=== PATIENT | male | born 1935 | race Caucasian/White ===

== ENCOUNTER 2017-05-17 22:55 | Inpatient (IN) ==
[2017-05-17 23:20] LABS: Basophils # 0.1 K/mcL (0.0-0.2); Basophils % 0.5 %; Eosinophils # 0.1 K/mcL (0.0-0.6); Eosinophils % 0.4 %; Hematocrit 51.7 % (37.5-50.1); Hemoglobin 17.1 g/dL (12.9-16.9); Immature Granulocytes % 0.6 % (0-4); Lymphocytes # 1.8 K/mcL (0.6-4.6); Lymphocytes % 8.6 %; Mean Corpuscular HGB Conc 33.1 g/dL (31.6-35.5); Mean Corpuscular Hemoglobin 28.2 pg (28.0-33.3); Mean Corpuscular Volume 85.3 fL (83.0-100.0); Mean Platelet Volume 9.3 fL (9.4-12.4); Monocytes # 1.7 K/mcL (0.0-1.3); Monocytes % 8.3 %; Neutrophils # 16.9 K/mcL (1.6-8.9); Platelet Count 731 K/mcL (140-400); Red Blood Count 6.06 M/mcL (4.19-5.50); Red Cell Distribution Width 16.5 % (11.5-14.5); Segmented Neutrophils % 81.6 %
[2017-05-17 23:24] LABS: Bilirubin,Urine Small (Negative); Blood,Urine Negative (Negative); Clarity,Urine Clear (Clear); Color,Urine Dark Yellow (Yellow); Glucose,Urine (UA) Normal (Normal); Ketones,Urine Negative (Negative); Leukocyte Esterase,Urine Small (Negative); Nitrite,Urine Negative (Negative); Protein,Urine Negative (Neg-Trace); Specific Gravity,Urine 1.022 (1.010-1.025); Urobilinogen,Urine Normal (Normal)
[2017-05-17 23:26] LABS: Bacteria,Urine None Seen per hpf (None-Few); Hyaline Casts,Urine Few per lpf (None-Few); Squamous Epithelial Cell,Urine Few per lpf (None-Few)
--- NOTE | 2017-05-17 23:35 | Emergency Department Note ---
Disposition Clinical Impression: Thrombocytosis Stroke Qualifiers: CVA mechanism: unspecified Qualified Code(s): I63.9 - Cerebral infarction, unspecified Altered mental status Qualifiers: Altered mental status type: unspecified Qualified Code(s): R41.82 - Altered mental status, unspecified Leukocytosis Qualifiers: Leukocytosis type: other Qualified Code(s): D72.828 - Other elevated white blood cell count Disposition: Admitted As Inpatient Condition: Fair Referrals: Isa Hernandez DO [Primary Care Provider] - Forms: ED Satisfaction Letter Time of Disposition: 03:50 Altered Mental Status HPI - General Chief Complaint: ED Altered Mental Status Stated Complaint: AMS Time Seen by Provider: 05/17/17 23:01 Nursing Notes Reviewed: Yes Vital Signs Reviewed: Yes - History of Present Illness HPI Narrative: 81-year-old male presents to the emergency department via EMS with concern from the senior care that he was unresponsive today laying in bed. There is concern from the family members as they state that he has had worsening mental status over the last month, but especially over the last week. Family states that patient had a leukocytosis of 19 a week ago at a different facility, and that they were treating it with Rocephin. I stated that the leukocytosis improved. - Related Data Home Medications Medication Instructions Recorded Confirmed Calcium Carbonate [Calcium] 500 mg PO BID 05/18/17 05/18/17 Divalproex Sodium [Depakote 250 mg PO TID 05/18/17 05/18/17 Sprinkle] Haloperidol [Haldol] 2.5 mg PO BID 05/18/17 05/18/17 LORazepam [Ativan] 0.25 mg PO DAILY 05/18/17 05/18/17 LORazepam [Ativan] 1 mg PO HS 05/18/17 05/18/17 Lisinopril [Zestril] 12.5 mg PO DAILY 05/18/17 05/18/17 Melatonin [Melatin] 6 mg PO HS 05/18/17 05/18/17 Mirtazapine [Remeron] 30 mg PO HS 05/18/17 05/18/17 Allergies Allergy/AdvReac Type Severity Reaction Status Date / Time No Known Allergies Allergy Verified 05/18/17 02:42 All systems ED: reviewed and negative except as stated. Review of Systems: As Per HPI Limitations: ROS unobtainable due to patients medical condition Constitutional: Denies: fever Physical Exam General: 81-year-old male lying on the stretcher, quiet. Head: autraumatic, EOMI, no conjuncitval pallor, no scleral icterus, Mouth: oral mucous membranes moist Neck: neck soft, trachea midline Chest:: Equal chest wall rise Lungs: Normal lungs sounds bilaterally, no wheezes, no respiratory distress Heart: normal heart sounds, normal rate and rhythm, Abdomen: soft, non-tender, no rigidity, no guarding, no rebdound tenderness Lower Extremities: 1+ pedal edema, calves non-tender, there is some mild erythema along the anterior aspect of the legs bilaterally. Integumentary: Skin warm, dry, and intact Neuro: GCS 9, neurologic exam limited secondary to patient's poor participation Psych: normal affect, normal mood Course Vital Signs Temperature 97.6 F 05/17/17 23:01 Pulse Rate 74 05/17/17 23:01 Respiratory Rate 16 05/17/17 23:01 Blood Pressure 142/86 05/17/17 23:01 O2 Sat by Pulse Oximetry 92 05/17/17 23:01 Temperature 97.6 F 05/17/17 23:01 Pulse Rate 74 05/17/17 23:01 Respiratory Rate 16 05/17/17 23:01 Blood Pressure 142/86 05/17/17 23:01 O2 Sat by Pulse Oximetry 92 05/17/17 23:10 Oxygen Delivery Oxygen Delivery Nasal Cannula Procedures - Lumbar Puncture Consent Obtained: written consent Time Out Performed: Yes Patient Position: right lateral decubitus Local Anesthetic: lidocaine 1%, with epi Amount of anesthesia used (mL): 5 Spinal Needle Gauge: 20G Interspace Used: L4-L5 Fluid Initially Obtained: clear Complications: none Altered Mental Status - MDM Narrative Medical decision making narrative: 81-year-old male presents to the emergency department with concern for worsening mental status over the last week. CT scan was obtained and revealed a new ischemic left occipital stroke. Patient was given aspirin. CBC reveals a leukocytosis of 20.7 and a thrombocytosis of 731. There has been mention of a oncologic workup, in the emergency department, we wanted to rule out sources of infection. Patient's urinalysis not reveal evidence of a urinary tract infection. Chest x-ray does not reveal any evidence of pneumonia. Lumbar puncture was obtained to rule out meningitis. Glucose is mildly elevated, but all other cell counts were within normal limits otherwise. Family bedside prior to disposition of patient. The senior care was informed that he was admitted. Admission was discussed with the hospitalist who agreed to accept the patient. Patient was provided 1 L of normal saline here in the emergency department. He was in no acute distress and hemodynamically stable at time of admission. Chest X-Ray 05/17/17 23:01 IMPRESSION: Negative portable chest. D/ / Dayne Lerma MD / Dayne Lerma MD Interpreting Provider: Dayne Lerma MD Head CT 05/17/17 23:02 IMPRESSION: Left occipital lobe ischemia versus artifact. There is no acute hemorrhage. D/ / Dayne Lerma MD / Dayne Lerma MD Interpreting Provider: Dayne Lerma MD Vital Signs Temperature 97.6 F 05/17/17 23:01 Pulse Rate 74 05/17/17 23:01 Respiratory Rate 16 05/17/17 23:01 Blood Pressure 142/86 05/17/17 23:01 O2 Sat by Pulse Oximetry 92 05/17/17 23:01 Temperature 97.6 F 05/17/17 23:01 Pulse Rate 84 05/18/17 03:02 Respiratory Rate 18 05/18/17 03:02 Blood Pressure 144/97 05/18/17 03:02 O2 Sat by Pulse Oximetry 97 05/18/17 03:02 Oxygen Delivery Oxygen Delivery Nasal Cannula - Medical Records Medical records reviewed: Yes I reviewed the patient's medical records. - Lab Data Lab results reviewed: Yes I reviewed the patient's lab results. Result diagrams: 05/17/17 23:07 05/17/17 23:49 Lab Results 05/17/17 05/17/17 05/17/17 Range/Units 23:07 23:07 23:15 WBC 20.7 H (4.3-11.1) K/mcL RBC 6.06 H (4.19-5.50) M/mcL Hgb 17.1 H (12.9-16.9) g/dL Hct 51.7 H (37.5-50.1) % MCV 85.3 (83.0-100.0) fL MCH 28.2 (28.0-33.3) pg MCHC 33.1 (31.6-35.5) g/dL RDW 16.5 H (11.5-14.5) % Plt Count 731 H (140-400) K/mcL MPV 9.3 L (9.4-12.4) fL Immature Gran % 0.6 (0-4) % Seg Neutrophils % 81.6 % Lymphocytes % 8.6 % Monocytes % 8.3 % Eosinophils % 0.4 % Basophils % 0.5 % Neutrophils # 16.9 H (1.6-8.9) K/mcL Lymphocytes # 1.8 (0.6-4.6) K/mcL Monocytes # 1.7 H (0.0-1.3) K/mcL Eosinophils # 0.1 (0.0-0.6) K/mcL Basophils # 0.1 (0.0-0.2) K/mcL Sodium (136-145) mEq/L Potassium (3.5-4.5) mEq/L Chloride (98-109) mEq/L Carbon Dioxide (19-29) mEq/L BUN (8-26) mg/dL Creatinine (0.72-1.25) mg/dL Est GFR ( Amer) (> 60) Est GFR (Non-Af Amer) (> 60) BUN/Creatinine Ratio (6-26) Glucose (70-99) mg/dL Calculated Osmolality (280-300) Calcium (8.6-10.8) mg/dL Total Bilirubin (0.2-1.2) mg/dL Direct Bilirubin (0.0-0.5) mg/dL Indirect Bilirubin (0.0-1.2) mg/dL AST (5-34) Units/L ALT (0-55) Units/L Alkaline Phosphatase (38-126) Units/L Troponin I (0-0.03) ng/mL Serum Total Protein (6.0-8.3) g/dL Albumin (3.5-5.0) g/dL Globulin (2.4-3.5) g/dL Albumin/Globulin Ratio (1.1-2.2) TSH (0.350-4.840) mcIU/mL Urine Color Dark Yellow (Yellow) Urine Clarity Clear (Clear) Urine pH 6.0 (5.0-8.0) pH Units Ur Specific [place] 1.022 (1.010-1.025) Urine Protein Negative (Neg-Trace) mg/dL Urine Glucose (UA) Normal (Normal) mg/dL Urine Ketones Negative (Negative) mg/dL Urine Blood Negative (Negative) Urine Nitrite Negative (Negative) Urine Bilirubin Small H (Negative) Urine Urobilinogen Normal (Normal) mg/dL Ur Leukocyte Esterase Small H (Negative) Urine Microscopic RBC 3-5 H (0-3) per hpf Urine Microscopic WBC 5-15 H (0-3) per hpf Ur Squamous Epith Cells Few (None-Few) per lpf Urine Bacteria None Seen (None-Few) per hpf Hyaline Casts Few (None-Few) per lpf Ur Culture Indicated? YES A (NO) CSF Volume mL CSF Appearance (Clear) CSF Color (Colorless) CSF RBC (0.000 - 0.002) M/mcL CSF Tot Nucleated Cells (0-5) TNC/mcL CSF Glucose (40-70) mg/dL CSF Xanth Comm (Not Observe) CSF Total Protein (15-45) mg/dL Specimen Rejected Hemolyzed 05/17/17 05/17/17 05/18/17 Range/Units 23:49 23:49 01:50 WBC (4.3-11.1) K/mcL RBC (4.19-5.50) M/mcL Hgb (12.9-16.9) g/dL Hct (37.5-50.1) % MCV (83.0-100.0) fL MCH (28.0-33.3) pg MCHC (31.6-35.5) g/dL RDW (11.5-14.5) % Plt Count (140-400) K/mcL MPV (9.4-12.4) fL Immature Gran % (0-4) % Seg Neutrophils % % Lymphocytes % % Monocytes % % Eosinophils % % Basophils % % Neutrophils # (1.6-8.9) K/mcL Lymphocytes # (0.6-4.6) K/mcL Monocytes # (0.0-1.3) K/mcL Eosinophils # (0.0-0.6) K/mcL Basophils # (0.0-0.2) K/mcL Sodium 138 (136-145) mEq/L Potassium 4.2 (3.5-4.5) mEq/L Chloride 101 (98-109) mEq/L Carbon Dioxide 29 (19-29) mEq/L BUN 16 (8-26) mg/dL Creatinine 1.08 (0.72-1.25) mg/dL Est GFR ( Amer) > 60 (> 60) Est GFR (Non-Af Amer) > 60 (> 60) BUN/Creatinine Ratio 15 (6-26) Glucose 127 H (70-99) mg/dL Calculated Osmolality 289 (280-300) Calcium 9.0 (8.6-10.8) mg/dL Total Bilirubin 0.7 (0.2-1.2) mg/dL Direct Bilirubin 0.3 (0.0-0.5) mg/dL Indirect Bilirubin 0.4 (0.0-1.2) mg/dL AST 19 (5-34) Units/L ALT 12 (0-55) Units/L Alkaline Phosphatase 85 (38-126) Units/L Troponin I 0.01 (0-0.03) ng/mL Serum Total Protein 7.0 (6.0-8.3) g/dL Albumin 2.7 L (3.5-5.0) g/dL Globulin 4.3 H (2.4-3.5) g/dL Albumin/Globulin Ratio 0.6 L (1.1-2.2) TSH 2.468 (0.350-4.840) mcIU/mL Urine Color (Yellow) Urine Clarity (Clear) Urine pH (5.0-8.0) pH Units Ur Specific [place] (1.010-1.025) Urine Protein (Neg-Trace) mg/dL Urine Glucose (UA) (Normal) mg/dL Urine Ketones (Negative) mg/dL Urine Blood (Negative) Urine Nitrite (Negative) Urine Bilirubin (Negative) Urine Urobilinogen (Normal) mg/dL Ur Leukocyte Esterase (Negative) Urine Microscopic RBC (0-3) per hpf Urine Microscopic WBC (0-3) per hpf Ur Squamous Epith Cells (None-Few) per lpf Urine Bacteria (None-Few) per hpf Hyaline Casts (None-Few) per lpf Ur Culture Indicated? (NO) CSF Volume 3.0 mL CSF Appearance Clear (Clear) CSF Color Colorless (Colorless) CSF RBC < 0.002 (0.000 - 0.002) M/mcL CSF Tot Nucleated Cells < 3 (0-5) TNC/mcL CSF Glucose 74 H (40-70) mg/dL CSF Xanth Comm Not Observed (Not Observe) CSF Total Protein 45 (15-45) mg/dL Specimen Rejected - Radiology Data Radiology results reviewed: Yes I reviewed the patient's radiology results. - EKG Data EKG attestation: Yes I reviewed and interpreted this EKG. EKG results narrative: 2302 Ventricular rate 78 bpm, AR interval 147 ms, QRS duration 90 ms, QT 386 ms, QTC 419 ms, normal axis. Sinus rhythm with a ventricular rate of 78 bpm. There is no evidence of any ischemic ST changes noted on this electrocardiogram in comparison with the previous one performed on June 09, 2005. TPA Checklist - LKW: 3-4.5 hrs Add. Warnings/Precautions Patient/family understanding: The patient/family members have been counseled and understood the risk, benefit , and alternatives of treatment. Attestation Statement - Attestation Attestation: I examined this patient and my medical decision-making was reviewed with the Resident Physician. I agree with the documented findings, disposition and treatment plan as described except to the extent set forth below. Patient to ED with altered mental status. Patient was [facility] from [facility]. Patient is normally awake and talking but has been sleeping and difficult to arouse. He recently had a change in his medications but increase in Ativan and Haldol. Her recent admission. He is to have a leukocytosis that time period and never found a source. He completed a treatment course of Rocephin. On examination he sleeping. Localizes pain. Mumbles incoherently. Moving all extremities. Plan. The patient's workup here again demonstrates a leukocytosis of 20. It is unclear where this white count is coming from. He has not been on steroids. He is not febrile. We did question whether the patient could have a meningitis/encephalitis that was partially treated with Rocephin. We did perform an LP. Cultures pending at this time. We will admit to medicine. 35 minutes of critical care exclusive of separately billable procedures.
[2017-05-18 00:10] LABS: Alanine Aminotransferase 12 Units/L (0-55); Albumin 2.7 g/dL (3.5-5.0); Albumin/Globulin Ratio 0.6 (1.1-2.2); Alkaline Phosphatase 85 Units/L (38-126); Aspartate Amino Transferase 19 Units/L (5-34); BUN/Creatinine Ratio 15 (6-26); Bilirubin,Direct 0.3 mg/dL (0.0-0.5); Bilirubin,Indirect 0.4 mg/dL (0.0-1.2); Bilirubin,Total 0.7 mg/dL (0.2-1.2); Blood Urea Nitrogen 16 mg/dL (8-26); Carbon Dioxide 29 mEq/L (19-29); Chloride 101 mEq/L (98-109); Globulin 4.3 g/dL (2.4-3.5); Glucose 127 mg/dL (70-99); Osmolality,Calculated 289 (280-300); Potassium 4.2 mEq/L (3.5-4.5); Sodium 138 mEq/L (136-145); eGFR For African Americans > 60 (> 60); eGFR For Non-African Americans > 60 (> 60)
[2017-05-18 00:42] LABS: Thyroid Stimulating Hormone 2.468 mcIU/mL (0.350-4.840)
[2017-05-18] MEDS ORDERED: Lidocaine/EPI 1:100k 1% 50 ML VIAL INFILT ONE (01:27)
[2017-05-18 02:18] LABS: Red Blood Cell,CSF < 0.002 M/mcL
[2017-05-18] MEDS ORDERED: Aspirin 81 MG TAB.CHEW PO ONE (02:24)
[2017-05-18 02:25] LABS: Appearance,CSF Clear (Clear)
[2017-05-18 02:35] LABS: Glucose,CSF 74 mg/dL (40-70); Total Protein,CSF 45 mg/dL (15-45)
[2017-05-18] MEDS ORDERED: 0.9 % Sodium Chloride 1,000 ML IVC ONE (03:16)
[2017-05-18] MEDS ORDERED: Acetaminophen 325 MG TABLET PO PRN (03:48)
[2017-05-18] MEDS ORDERED: Naloxone 0.4 MG/ML INJ IVP PRN (03:48)
--- NOTE | 2017-05-18 04:06 | Internal Med History&Physical ---
Date of Encounter: 05/18/17 Time of Encounter: 03:30 Assessment and Plan (1) Stroke Current visit: Yes Status: Acute Patient has altered mental status. LP has been done, no meningitis or infection. CT suspect occipital ischemia. - Highly suspected if patient can tolerate MRI. 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 May repeat CT later to confirm CVA later. - Place patient on continuous cardiac monitoring, check echo and duplex carotid - Place patient on aspirin and atovastatin - PTOT evaluation. - Keep nothing by mouth at this point, swallow evaluation in a.m. Qualifiers: CVA mechanism: unspecified Qualified Code(s): I63.9 - Cerebral infarction, unspecified (2) Dementia Current visit: Yes Status: Acute Continue supportive care Qualifiers: Dementia type: Alzheimer's disease Qualified Code(s): G30.8 - Other Alzheimer's disease; F02.81 - Dementia in other diseases classified elsewhere with behavioral disturbance; F02.81 - Dementia in other diseases classified elsewhere with behavioral disturbance; F02.81 - Dementia in other diseases classified elsewhere with behavioral disturbance (3) Altered mental status Current visit: Yes Status: Acute Possibly multiple factor include possible CVA, UTI, baseline dementia, polypharmacy. - Continue closely monitor patient. Treat underlying disease. Qualifiers: Altered mental status type: delirium Qualified Code(s): R41.0 - Disorientation, unspecified (4) Leukocytosis Current visit: Yes Status: Acute Etiology is undetermined. Neutrophil dominant. No significant infection identified except urinalysis shows UTI. Will give Rocephin for UTI. Follow urine culture. Follow CBC to see the trend of WBC. May consider hematology consult if leukocytosis persists. Qualifiers: Leukocytosis type: other Qualified Code(s): D72.828 - Other elevated white blood cell count (5) DVT prophylaxis Current visit: Yes Status: Acute Heparin subcutaneously (6) UTI (urinary tract infection) Current visit: Yes Status: Acute Urinalysis shows UTI. Will continue place patient on Rocephin IV. Follow urine culture. Qualifiers: Urinary tract infection type: acute cystitis Hematuria presence: without hematuria Qualified Code(s): N30.00 - Acute cystitis without hematuria Internal Medicine - H&P: HPI Chief complaint: Altered mental status Admitted From: Long-term Nursing Facility Plans for Post Hospital Care: Transfer [facility] Facility History of present illness: Mr. Bridges is a 81 year old male with history of dementia, hypertension present to ER for altered mental status. Patient is demented and cannot communicate. Family is not at bedside. History obtained from long-term and ER record. Patient was found altered mental status and difficult due to arouse today. Patient was found chronic leukocytosis but reason is undetermined. Patient accepted Rocephin treatment but do not know how long. Patient was suspected meningitis in ER and had a lumbar puncture, results not support meningitis or intracranial infection. CT head suspected occipital ischemia. Patient was admitted for altered mental status. Actually, patient's mental status has improved in the emergency room. When I saw him, he is awake alert, totally disorientated but opened eyes if his name was called. Cannot discuss CODE STATUS with patient. According to long-term record, patient is DNR [facility]. Past Med Surg Social Fam HX - Past Medical History Medical history: non-contributory - Social History Smoking Status: Unknown if ever smoked Alcohol use: none Drug use: none - Family History Mother History Unknown: Yes Internal Medicine - H&P: Meds Calcium Carbonate [Calcium] 500 mg PO BID 05/18/17 [History] Divalproex Sodium [Depakote Sprinkle] 250 mg PO TID 05/18/17 [History] Haloperidol [Haldol] 2.5 mg PO BID 05/18/17 [History] LORazepam [Ativan] 0.25 mg PO DAILY 05/18/17 [History] LORazepam [Ativan] 1 mg PO HS 05/18/17 [History] Lisinopril [Zestril] 12.5 mg PO DAILY 05/18/17 [History] Melatonin [Melatin] 6 mg PO HS 05/18/17 [History] Mirtazapine [Remeron] 30 mg PO HS 05/18/17 [History] 3 Allergy/AdvReac Type Severity Reaction Status Date / Time No Known Allergies Allergy Verified 05/18/17 02:42 ROS unobtainable: due to mental status All Systems PM: A 10-system review of systems was performed and is negative for pertinent findings except as documented above in the HPI. - Constitutional Vitals: Temp Pulse Resp BP Pulse Ox 97.6 F 84 18 144/97 97 05/17/17 23:01 05/18/17 03:02 05/18/17 03:02 05/18/17 03:02 05/18/17 03:02 General appearance: Present: A&O X 0, no acute distress - Head Head exam: Present: atraumatic, normocephalic - Eye Eye exam: Present: PERRL, conjuntiva pink, sclera anicteric Pupils: Present: PERRL - Neck Neck exam general surgery: Present: supple, trachea midline. Absent: lymphadenopathy - Respiratory Respiratory exam: Present: CTAB. Absent: accessory muscle use, rales, rhonchi, wheezes - Cardiovascular Cardiovascular exam: Present: RRR, +S1, +S2. Absent: diastolic murmur, gallop, rubs, systolic murmur - GI/Abdominal GI/Abdominal exam: Present: normal bowel sounds, soft, no peritoneal signs. Absent: distended, tenderness - Extremities Exam Extremities exam: Present: warm, radial pulses palpable and symmetrical. Absent : calf tenderness, cyanotic, pedal edema - Neurological Exam Neurological exam: Present: no focal deficits. Absent: pronater drift, facial droop - Skin Skin exam: Present: dry, intact Internal Med - H&P Results - Labs CBC & Chem 7: 05/17/17 23:07 05/17/17 23:49 - EKG Data -: EKG Interpreted by Myself EKG shows normal: sinus rhythm Rate: normal
[2017-05-18] MEDS ORDERED: Haloperidol Lactate 5 MG/ML VIAL IVP ONE ×3 (04:40→05:18)
[2017-05-18] MEDS ORDERED: Haloperidol Lactate 5 MG/ML VIAL ONE (05:00)
[2017-05-18 06:08] LABS: Basophils # 0.1 K/mcL (0.0-0.2); Basophils % 0.3 %; Eosinophils % 0.1 %; Hematocrit 50.6 % (37.5-50.1); Hemoglobin 16.4 g/dL (12.9-16.9); Immature Granulocytes % 0.6 % (0-4); Lymphocytes # 1.4 K/mcL (0.6-4.6); Lymphocytes % 5.3 %; Mean Corpuscular HGB Conc 32.4 g/dL (31.6-35.5); Mean Corpuscular Hemoglobin 27.8 pg (28.0-33.3); Mean Corpuscular Volume 85.9 fL (83.0-100.0); Monocytes # 1.8 K/mcL (0.0-1.3); Monocytes % 7.1 %; Platelet Count 543 K/mcL (140-400); Red Blood Count 5.89 M/mcL (4.19-5.50); Red Cell Distribution Width 16.4 % (11.5-14.5); Segmented Neutrophils % 86.6 %
[2017-05-18 06:09] LABS: Neutrophils # 22.3 K/mcL (1.6-8.9)
--- NOTE | 2017-05-18 06:25 | Event Note ---
Date of Encounter: 05/18/17 Time of Encounter: 06:20 Pt has fever, WBC increased to 27K. Meet criteria of SIRS. Will empirically start broad spectrum abx vanco and zosyn, follow blood and urine culture.
[2017-05-18 06:28] LABS: Large Platelets Present (Not Present); Platelet Estimate Increased (Normal)
[2017-05-18] MEDS: *HR* Heparin 5,000 UNIT/ML VIAL SQ SCH ×2 (06:31→16:50)
[2017-05-18] MEDS: Acetaminophen 650 MG RECTAL SUPP RC PRN (06:32)
[2017-05-18] MEDS: 0.9 % Sodium Chloride 1,000 ML IVC SCH ×2 (06:33→16:51)
[2017-05-18 06:42] LABS: BUN/Creatinine Ratio 17 (6-26); Blood Urea Nitrogen 15 mg/dL (8-26); Calcium 8.5 mg/dL (8.6-10.8); Carbon Dioxide 24 mEq/L (19-29); Chloride 107 mEq/L (98-109); Glucose 125 mg/dL (70-99); Magnesium 1.7 mg/dL (1.6-2.6); Osmolality,Calculated 290 (280-300); Potassium 4.7 mEq/L (3.5-4.5); Sodium 139 mEq/L (136-145); eGFR For African Americans > 60 (> 60); eGFR For Non-African Americans > 60 (> 60)
[2017-05-18] MEDS: Vancomycin 1,250 MG in D5% in Water 250 ML IVPB SCH (06:43)
[2017-05-18] MEDS ORDERED: Vancomycin 1,000 MG in D5% in Water 250 ML IVPB SCH (07:00)
[2017-05-18] MEDS ORDERED: cefTRIAXone 1,000 MG in Water for inj. (sterile) 10 ML IVP SCH (09:00)
[2017-05-18] MEDS: *HR* LORazepam 0.5 MG TABLET PO SCH (11:20)
[2017-05-18] MEDS: Aspirin Enteric Coated 81 MG Tablet PO SCH (11:20)
[2017-05-18] MEDS: Divalproex Sodium 125 MG CAPSULE PO SCH ×2 (11:20→16:50)
[2017-05-18] MEDS: Piperacillin/Tazobactam 3.375 GM in D5% in Water 50 ML IVPB SCH ×2 (11:43→16:50)
--- NOTE | 2017-05-18 11:54 | Event Note ---
Date of Encounter: 05/18/17 Time of Encounter: 11:54 81-year-old white male with history of hypertension, dementia with behavioral abnormalities, sent from detention with lethargy and altered mental status from baseline. Patient was noted to have fever, leukocytosis, underwent lumbar puncture with negative CSF, not suggestive of infection. Patient seen and examined at bedside. Resting with eyes closed, does not respond to verbal or tactile stimuli. Chest-S1, S2 heard. Lungs are clear to auscultation bilateral anterolaterally Reviewed labs-leukocytosis with left shift, platelets 543 Severe sepsis, uncertain etiology-continue broad-spectrum IV antibiotics- vancomycin and Zosyn. Follow-up blood and urine cultures. CSF analysis not consistent with bacterial meningitis. Follow up final CSF culture. Monitor vital signs closely. Continue aggressive IV hydration. Serum lactate noted to be normal. Check CT chest/abdomen/pelvis for occult infection. Plan of care d/w patient's daughter at bedside;
--- NOTE | 2017-05-18 17:40 | Electrocardiograph Report ---
[place] [id number] Test Date: 2017-05-17 Pat Name: Uvaldo Bridges Department: [id number] Room: 2NE27 Gender: M Head Paper Tester: AMBER : [id number] Requested By: Christopher Salcedo Order Number: [id number] Reading MD: Marsha Pineda Measurements Intervals [place] Rate: 78 P: 65 CT: 147 QRS: 47 QRSD: 90 T: 70 QT: 386 QTc: 419 Interpretive Statements SINUS RHYTHM WITH OCCASIONAL VENTRICULAR PREMATURE COMPLEXES NONSPECIFIC T-WAVE ABNORMALITY Electronically Signed On 05-18-2017 17:39:14 EST by Marsha Pineda
[2017-05-18] MEDS: Valproic Acid INJ 250 MG in 0.9 % Sodium Chloride 100 ML IVPB SCH (23:42)
[2017-05-18] MEDS: *HR* LORazepam 1 MG TABLET PO SCH (23:47)
[2017-05-18] MEDS: Melatonin 3 MG TABLET PO SCH (23:47)
[2017-05-18] MEDS: Mirtazapine 15 MG TABLET PO SCH (23:47)
[2017-05-19] MEDS: Piperacillin/Tazobactam 3.375 GM in D5% in Water 50 ML IVPB SCH ×3 (01:04→17:06)
[2017-05-19] MEDS: Valproic Acid INJ 250 MG in 0.9 % Sodium Chloride 100 ML IVPB SCH ×3 (05:51→23:45)
[2017-05-19] MEDS: *HR* Heparin 5,000 UNIT/ML VIAL SQ SCH ×2 (05:52→17:05)
[2017-05-19] MEDS: Haloperidol Lactate 5 MG/ML VIAL IVP PRN (08:19)
[2017-05-19] MEDS: Vancomycin 1,250 MG in D5% in Water 250 ML IVPB SCH (08:21)
[2017-05-19] MEDS: *HR* LORazepam 0.5 MG TABLET PO SCH ×2 (08:25→12:39)
[2017-05-19 12:42] LABS: Basophils # 0.1 K/mcL (0.0-0.2); Basophils % 0.9 %; Eosinophils # 0.2 K/mcL (0.0-0.6); Eosinophils % 1.3 %; Hematocrit 42.9 % (37.5-50.1); Immature Granulocytes % 0.3 % (0-4); Immature Platelets 3.9 % (1.1-6.1); Lymphocytes # 2.8 K/mcL (0.6-4.6); Lymphocytes % 22.9 %; Mean Corpuscular HGB Conc 33.6 g/dL (31.6-35.5); Mean Corpuscular Hemoglobin 28.3 pg (28.0-33.3); Mean Corpuscular Volume 84.4 fL (83.0-100.0); Mean Platelet Volume 9.5 fL (9.4-12.4); Monocytes # 1.1 K/mcL (0.0-1.3); Monocytes % 9.4 %; Neutrophils # 7.9 K/mcL (1.6-8.9); Platelet Count 790 K/mcL (140-400); Red Blood Count 5.08 M/mcL (4.19-5.50); Red Cell Distribution Width 15.5 % (11.5-14.5); Segmented Neutrophils % 65.2 %
[2017-05-19 12:53] LABS: BUN/Creatinine Ratio 14 (6-26); Blood Urea Nitrogen 11 mg/dL (8-26); Carbon Dioxide 27 mEq/L (19-29); Chloride 107 mEq/L (98-109); Glucose 85 mg/dL (70-99); Potassium 3.8 mEq/L (3.5-4.5); Sodium 140 mEq/L (136-145); eGFR For African Americans > 60 (> 60); eGFR For Non-African Americans > 60 (> 60)
[2017-05-19 12:54] LABS: Calcium 8.1 mg/dL (8.6-10.8); Magnesium 1.6 mg/dL (1.6-2.6); Osmolality,Calculated 289 (280-300)
[2017-05-19 12:58] LABS: Hemoglobin 14.4 g/dL (12.9-16.9)
--- NOTE | 2017-05-19 13:20 | Internal Med Progress Note ---
Date of Encounter: 05/19/17 Time of Encounter: 12:35 - Assessment and plan (1) Stroke Current Visit: Yes Status: Acute Assessment and plan: presented with AMS, fever, leukocytosis; CT head showed subacute left occipital infarct vs extension of white matter ischemic disease. Continue ASA and statin. Will consult Neurology. Patient not cooperative for MRI brain. Carotid Doppler shows B/L nonstenotic plaque. Echocardiogram shows 555 EF, no valvular abnormality. Qualifiers: CVA mechanism: unspecified Qualified Code(s): I63.9 - Cerebral infarction, unspecified (2) Leukocytosis Current Visit: Yes Status: Acute Assessment and plan: improving; likely source of infection- Pneumonia; CT chest shows bibasal infiltrates- atelectasis vs PNA; continue IV Zosyn and hold Vancomycin; Qualifiers: Leukocytosis type: other Qualified Code(s): D72.828 - Other elevated white blood cell count (3) Encephalopathy Current Visit: Yes Status: Resolved Assessment and plan: Acute encephalopathy, likely metabolic/septic due to PNA, benzodiazepines/ sedatives. CSF analysis not c/w bacterial meningitis; currently back to baseline mental status, confused and disoriented, occasionally combative; continue 1:1 watch for safety. Fall precautions; treat underlying conditions; (4) Essential hypertension Current Visit: Yes Status: Chronic Assessment and plan: uncontrolled; patient refusing oral meds; will use PRN IV Hydralazine; (5) Thrombocytosis Current Visit: Yes Status: Acute Assessment and plan: likely reactive; continue to monitor; (6) Dementia Current Visit: Yes Status: Chronic Qualifiers: Dementia type: Alzheimer's disease Alzheimer's disease onset: late-onset Dementia behavioral disturbance: with behavioral disturbance Qualified Code(s) : G30.1 - Alzheimer's disease with late onset; F02.81 - Dementia in other diseases classified elsewhere with behavioral disturbance; F02.81 - Dementia in other diseases classified elsewhere with behavioral disturbance; F02.81 - Dementia in other diseases classified elsewhere with behavioral disturbance (7) Pneumonia Current Visit: Yes Status: Acute Assessment and plan: stable; continue IV Zosyn for possible aspiration; preliminary blood, urine and CSF cultures negative; Qualifiers: Pneumonia type: due to unspecified organism Laterality: bilateral Lung location: lower lobe of lung Qualified Code(s): J18.9 - Pneumonia, unspecified organism - Subjective Interval history: Noted to be awake and alert today but confused and occasionally combative; uncooperative to physical exam; cleared by [employer] PROC[employer]OR for pureed diet; - Constitutional Vitals: Temp Pulse Resp BP Pulse Ox 97.6 F 66 16 192/90 98 05/19/17 11:18 05/19/17 11:18 05/19/17 11:18 05/19/17 11:18 05/19/17 11:18 General appearance: Present: A&O X 0. Absent: answers questions appropriately - Extremities Exam Extremities exam: Present: pedal edema (improved erythema and warmth over B/L feet; persistent pedal edema, likely dependent), warm, radial pulses palpable and symmetrical. Absent: calf tenderness, cyanotic Internal Medicine: Result - Labs CBC & Chem 7: 05/19/17 12:25 05/19/17 12:25 Labs: Short CBC 05/19/17 Range/Units 12:25 WBC 12.1 H D (4.3-11.1) K/mcL Hgb 14.4 D (12.9-16.9) g/dL Hct 42.9 (37.5-50.1) % Plt Count 790 H (140-400) K/mcL Neutrophils # 7.9 (1.6-8.9) K/mcL BMP 05/19/17 12:25 Sodium 140 Potassium 3.8 Chloride 107 Carbon Dioxide 27 BUN 11 Creatinine 0.77 Glucose 85 Calcium 8.1 L Consult Discharge Plan - Plan Referrals: Isa Hernandez DO [Primary Care Provider] -
--- NOTE | 2017-05-19 17:04 | Neurology - Consult Note ---
Date of Encounter: 05/19/17 Time of Encounter: 14:01 Assessment and Plan (1) Encephalopathy Current Visit: Yes Status: Acute This patient will baseline has an history of dementia and recently been getting gradually worsening of his mental status was admitted with significant changes in his overall function now seems to be back to his baseline he is alert and awake now able to follow simple commands spinal tap Is negative for any acute ADMITTING OFFICER infection. As far as concern OCCIPITAL infarct, and a CT scan of his head I would recommend that we should continue him on antiplatelet therapy may do an echocardiogram or carotid duplex for any embolic source and at the same time continue to treat underlying metabolic abnormalities baseline he did have an dementia Height is for any acute delirium and hallucination with medication side effect as well as from changes in the environment (2) Leukocytosis Current Visit: Yes Status: Acute Qualifiers: Leukocytosis type: other Qualified Code(s): D72.828 - Other elevated white blood cell count History of Present Illness HPI: Mr. Bridges is a 81 year old male with history of dementia, hypertension admitted through the emergency room for mental status changes . Patient is demented and not able to give good history according to the family he has been in a different hospital and in the assisted living in the last few weeks and continued to have these mental status changes which has not resolved completely. According to the records he was in the correction and was difficult to arouse he was also found to have chronic leukocytosis but reason is undetermined. In the emergency room CT scan of the head shows question of occipital infarction at the same time he also had a spinal tap that was negative for any acute ADMITTING OFFICER infection. Patient remained confused but oriented to person and place able to follow simple commands now Past Med Surg Social Fam HX - Past Medical History Medical history: non-contributory - Social History Smoking Status: Unknown if ever smoked Alcohol use: none Drug use: none - Family History Mother History Unknown: Yes Medications and Allergies Donepezil HCl [Aricept] 5 mg PO HS 05/19/17 [History] FLUoxetine HCl [Prozac] 40 mg PO DAILY 05/19/17 [History] Levothyroxine [Synthroid] 50 mcg PO DAILY 05/19/17 [History] Lisinopril-HCTZ 20-12.5 [Prinzide 20-12.5] 1 tab PO DAILY 05/19/17 [History] Quetiapine Fumarate [SEROquel] 25 mg PO HS 05/19/17 [History] 3 Allergy/AdvReac Type Severity Reaction Status Date / Time No Known Allergies Allergy Verified 05/18/17 02:42 All Systems: A 10-system review of systems was performed and is negative for pertinent findings except as documented above in the HPI. Physical Examination - Vital Signs Vital Signs: Initial Vital Signs Temp Pulse Resp BP Pulse Ox 97.6 F 74 16 142/86 92 05/17/17 23:01 05/17/17 23:01 05/17/17 23:01 05/17/17 23:01 05/17/17 23:01 - Constitutional General appearance: comfortable - Neurologic Sensorimotor examination: intact Detailed motor examination: grossly full strength in all extremities Detailed sensory examination: intact Reflexes: Biceps: 1+, Triceps: 1+, Brachioradialis: 1+, Patella: 1+, Achilles: 1 + Mental Status Examination: awake, alert, oriented to person, opens eyes to voice , opens eyes to noxious stimulation, makes eye contact, follows simple commands , localizes noxious stimulation Cranial nerve examination: PERRL, EOMI, visual flannery intact, sensory to face intact, no facial asymmetry is present Cerebellar examination: no dysmetria Results - Laboratory Findings CBC and BMP: 05/19/17 12:25 05/19/17 12:25 Abnormal lab findings: Abnormal lab results WBC 12.1 K/mcL (4.3-11.1) H D 05/19/17 12:25 RDW 15.5 % (11.5-14.5) H 05/19/17 12:25 Plt Count 790 K/mcL (140-400) H 05/19/17 12:25 Platelet Estimate Increased (Normal) H 05/18/17 06:00 Large Platelets Present (Not Present) A 05/18/17 06:00 POC Glucose 91 (58-89) H 05/19/17 11:39 Calcium 8.1 mg/dL (8.6-10.8) L 05/19/17 12:25 Albumin 2.7 g/dL (3.5-5.0) L 05/17/17 23:49 Globulin 4.3 g/dL (2.4-3.5) H 05/17/17 23:49 Albumin/Globulin Ratio 0.6 (1.1-2.2) L 05/17/17 23:49 Urine Bilirubin Small (Negative) H 05/17/17 23:15 Ur Leukocyte Esterase Small (Negative) H 05/17/17 23:15 Urine Microscopic RBC 3-5 per hpf (0-3) H 05/17/17 23:15 Urine Microscopic WBC 5-15 per hpf (0-3) H 05/17/17 23:15 Ur Culture Indicated? YES (NO) A 05/17/17 23:15 CSF Glucose 74 mg/dL (40-70) H 05/18/17 01:50 Consult Discharge Plan - Plan Referrals: Isa Hernandez DO [Primary Care Provider] -
[2017-05-19] MEDS: *HR* LORazepam 1 MG TABLET PO SCH ×2 (21:47→22:08)
[2017-05-19] MEDS: Melatonin 3 MG TABLET PO SCH ×2 (21:47→22:08)
[2017-05-19] MEDS: Mirtazapine 15 MG TABLET PO SCH ×2 (21:47→22:08)
[2017-05-20] MEDS: Piperacillin/Tazobactam 3.375 GM in D5% in Water 50 ML IVPB SCH ×3 (00:55→17:56)
[2017-05-20] MEDS: *HR* Heparin 5,000 UNIT/ML VIAL SQ SCH ×2 (05:53→17:20)
[2017-05-20 06:15] LABS: Basophils # 0.1 K/mcL (0.0-0.2); Basophils % 1.2 %; Eosinophils # 0.1 K/mcL (0.0-0.6); Eosinophils % 1.2 %; Hematocrit 45.5 % (37.5-50.1); Hemoglobin 15.2 g/dL (12.9-16.9); Immature Granulocytes % 0.4 % (0-4); Lymphocytes # 2.2 K/mcL (0.6-4.6); Lymphocytes % 25.4 %; Mean Corpuscular HGB Conc 33.4 g/dL (31.6-35.5); Mean Corpuscular Hemoglobin 28.1 pg (28.0-33.3); Mean Corpuscular Volume 84.1 fL (83.0-100.0); Mean Platelet Volume 9.5 fL (9.4-12.4); Monocytes # 0.8 K/mcL (0.0-1.3); Monocytes % 9.5 %; Neutrophils # 5.3 K/mcL (1.6-8.9); Platelet Count 768 K/mcL (140-400); Red Blood Count 5.41 M/mcL (4.19-5.50); Red Cell Distribution Width 15.6 % (11.5-14.5); Segmented Neutrophils % 62.3 %
[2017-05-20 06:24] LABS: BUN/Creatinine Ratio 12 (6-26); Blood Urea Nitrogen 9 mg/dL (8-26); Calcium 8.2 mg/dL (8.6-10.8); Carbon Dioxide 25 mEq/L (19-29); Chloride 106 mEq/L (98-109); Glucose 80 mg/dL (70-99); Magnesium 1.6 mg/dL (1.6-2.6); Osmolality,Calculated 284 (280-300); Potassium 3.7 mEq/L (3.5-4.5); Sodium 138 mEq/L (136-145); eGFR For African Americans > 60 (> 60); eGFR For Non-African Americans > 60 (> 60)
[2017-05-20] MEDS ORDERED: *HR* Dextrose 50 % in Water (Syg) 50 ML SYRINGE IVP ONE ×2 (06:32→16:02)
[2017-05-20] MEDS: Valproic Acid INJ 250 MG in 0.9 % Sodium Chloride 100 ML IVPB SCH ×3 (06:37→22:21)
[2017-05-20] MEDS ORDERED: Aminoglycoside Consult 1 EACH MC ONE (08:11)
[2017-05-20] MEDS: Haloperidol Lactate 5 MG/ML VIAL IVP PRN (09:03)
[2017-05-20] MEDS: Aspirin Enteric Coated 81 MG Tablet PO SCH (12:13)
--- NOTE | 2017-05-20 16:02 | Neurology Progress Note ---
Date of Encounter: 05/20/17 Time of Encounter: 08:25 Assessment and Plan (1) Encephalopathy Current Visit: Yes Status: Resolved (2) Dementia Current Visit: Yes Status: Chronic This patient who has a history of dementia with recent multiple hospitalization as well as changes in the environment now quite delirious without any focal findings to be suggestive of a stroke so far workup is negative including CT echo and carotid were all negative He has abnormal UA and has been getting treated for it He has been agitated at times suggested to use at night perhaps could be increased to twice a day if needed, no sign of stroke on his neurological evaluation today Also suggest to check for other metabolic abnormalities that may be contributing to his symptoms Qualifiers: Alzheimer's disease onset: late-onset Dementia behavioral disturbance: with behavioral disturbance Qualified Code(s): G30.1 - Alzheimer's disease with late onset; F02.81 - Dementia in other diseases classified elsewhere with behavioral disturbance; F02.81 - Dementia in other diseases classified elsewhere with behavioral disturbance; F02.81 - Dementia in other diseases classified elsewhere with behavioral disturbance Subjective Interval history: Patient is alert and awake but agitated and combative at times follow commands at time denies any other new symptoms CSF is negative for any acute abnormality CT of the head was also negative Objective - Constitutional Vitals: Temp Pulse Resp BP Pulse Ox 96.6 F L 98 14 162/124 93 05/20/17 15:27 05/20/17 15:27 05/20/17 15:27 05/20/17 15:27 05/20/17 15:27 - Neurological Exam Sensorimotor examination: Present: intact Motor Examination: Present: grossly full strength in all extremities Sensation intact: Present: intact Reflexes: Biceps: 1+, Triceps: 1+, Brachioradialis: 1+, Patella: 1+, Achilles: 1 + Mental Status Examination: Present: awake, alert, oriented to person, opens eyes to voice, opens eyes to noxious stimulation, makes eye contact, follows simple commands, localizes noxious stimulation Cranial nerve examination: Present: PERRL, EOMI, visual flannery intact, sensory to face intact, no facial asymmetry is present Cerebellar examination: Present: no dysmetria Results - Laboratory Findings CBC and BMP: 05/20/17 05:41 05/20/17 05:41 Abnormal lab findings: Abnormal lab results RDW 15.6 % (11.5-14.5) H 05/20/17 05:41 Plt Count 768 K/mcL (140-400) H 05/20/17 05:41 Platelet Estimate Increased (Normal) H 05/18/17 06:00 Large Platelets Present (Not Present) A 05/18/17 06:00 Calcium 8.2 mg/dL (8.6-10.8) L 05/20/17 05:41 Albumin 2.7 g/dL (3.5-5.0) L 05/17/17 23:49 Globulin 4.3 g/dL (2.4-3.5) H 05/17/17 23:49 Albumin/Globulin Ratio 0.6 (1.1-2.2) L 05/17/17 23:49 Urine Bilirubin Small (Negative) H 05/17/17 23:15 Ur Leukocyte Esterase Small (Negative) H 05/17/17 23:15 Urine Microscopic RBC 3-5 per hpf (0-3) H 05/17/17 23:15 Urine Microscopic WBC 5-15 per hpf (0-3) H 05/17/17 23:15 Ur Culture Indicated? YES (NO) A 05/17/17 23:15 CSF Glucose 74 mg/dL (40-70) H 05/18/17 01:50 Vancomycin Trough 6.8 mcg/mL (10-20) L 05/20/17 05:41 Consult Discharge Plan - Plan Referrals: Isa Hernandez DO [Primary Care Provider] -
[2017-05-20] MEDS ORDERED: *HR* Dextrose 50 % in Water (Syg) 50 ML SYRINGE ONE (16:07)
[2017-05-20] MEDS ORDERED: D5% in 0.9% NACL 1,000 ML IVC ONE (16:08)
[2017-05-20] MEDS: D5% in 0.9% NACL 1,000 ML IVC SCH (16:11)
--- NOTE | 2017-05-20 18:01 | Internal Med Progress Note ---
Date of Encounter: 05/20/17 Time of Encounter: 11:00 - Assessment and plan (1) Stroke Current Visit: Yes Status: Acute Assessment and plan: -CT head showed subacute left occipital infarct vs extension of white matter ischemic disease. -Patient not cooperative for MRI brain. Carotid Doppler shows B/L nonstenotic plaque. Echocardiogram shows 555 EF, no valvular abnormality. -Continue ASA and statin. -Neurology following and appreciate recommendations. Qualifiers: CVA mechanism: unspecified Qualified Code(s): I63.9 - Cerebral infarction, unspecified (2) Pneumonia Current Visit: Yes Status: Acute Assessment and plan: -Continue IV Zosyn for possible aspiration Qualifiers: Pneumonia type: due to unspecified organism Laterality: bilateral Lung location: lower lobe of lung Qualified Code(s): J18.9 - Pneumonia, unspecified organism (3) UTI (urinary tract infection) Current Visit: Yes Status: Acute Assessment and plan: -Covered by Zosyn Qualifiers: Urinary tract infection type: acute cystitis Hematuria presence: without hematuria Qualified Code(s): N30.00 - Acute cystitis without hematuria (4) Encephalopathy Current Visit: Yes Status: Resolved Assessment and plan: -Acute encephalopathy, likely metabolic/septic due to UTI/PNA, benzodiazepines/ sedatives. -CSF analysis not c/w bacterial meningitis -Currently back to baseline mental status, confused and disoriented, occasionally combative; continue 1:1 watch for safety. (5) Dementia Current Visit: Yes Status: Chronic Assessment and plan: -Suspect patient with underlying dementia. Qualifiers: Dementia type: Alzheimer's disease Alzheimer's disease onset: late-onset Dementia behavioral disturbance: with behavioral disturbance Qualified Code(s) : G30.1 - Alzheimer's disease with late onset; F02.81 - Dementia in other diseases classified elsewhere with behavioral disturbance; F02.81 - Dementia in other diseases classified elsewhere with behavioral disturbance; F02.81 - Dementia in other diseases classified elsewhere with behavioral disturbance (6) Thrombocytosis Current Visit: Yes Status: Acute Assessment and plan: -Likely reactive; continue to monitor; (7) Essential hypertension Current Visit: Yes Status: Chronic Assessment and plan: -Patient refusing oral meds; will use PRN IV Hydralazine; (8) DVT prophylaxis Current Visit: Yes Status: Acute Assessment and plan: -Subcutaneous heparin. - Subjective Interval history: Patient with intermittent combativeness which is suspected to be his baseline per family as he has been treated for this as an outpatient and also at inpatient facility as well. - Constitutional Vitals: Temp Pulse Resp BP Pulse Ox 96.6 F L 98 14 162/124 93 05/20/17 15:27 05/20/17 15:27 05/20/17 15:27 05/20/17 15:27 05/20/17 15:27 General appearance: Present: A&O X 0. Absent: answers questions appropriately - Cardiovascular Cardiovascular exam: Present: RRR, +S1, +S2. Absent: diastolic murmur, gallop, rubs, systolic murmur Internal Medicine: Result - Labs CBC & Chem 7: 05/20/17 05:41 05/20/17 05:41 Labs: Short CBC 05/20/17 Range/Units 05:41 WBC 8.5 (4.3-11.1) K/mcL Hgb 15.2 (12.9-16.9) g/dL Hct 45.5 (37.5-50.1) % Plt Count 768 H (140-400) K/mcL Neutrophils # 5.3 (1.6-8.9) K/mcL BMP 05/20/17 05:41 Sodium 138 Potassium 3.7 Chloride 106 Carbon Dioxide 25 BUN 9 Creatinine 0.75 Glucose 80 Calcium 8.2 L Consult Discharge Plan - Plan Referrals: Isa Hernandez DO [Primary Care Provider] -
[2017-05-20 21:00] LABS: Folate 10.2 ng/mL (7.0-31.4)
[2017-05-20] MEDS: Melatonin 3 MG TABLET PO SCH (21:36)
[2017-05-20] MEDS: Mirtazapine 15 MG TABLET PO SCH (21:36)
[2017-05-21] MEDS: Piperacillin/Tazobactam 3.375 GM in D5% in Water 50 ML IVPB SCH ×3 (00:27→19:50)
[2017-05-21] MEDS: Acetaminophen 650 MG RECTAL SUPP RC PRN (03:31)
[2017-05-21] MEDS: *HR* Heparin 5,000 UNIT/ML VIAL SQ SCH ×2 (05:37→16:59)
[2017-05-21] MEDS: D5% in 0.9% NACL 1,000 ML IVC SCH (08:25)
[2017-05-21] MEDS: Valproic Acid INJ 250 MG in 0.9 % Sodium Chloride 100 ML IVPB SCH ×4 (09:29→23:11)
[2017-05-21 09:39] LABS: Basophils # 0.1 K/mcL (0.0-0.2); Basophils % 0.4 %; Eosinophils % 0.2 %; Hemoglobin 15.1 g/dL (12.9-16.9); Immature Granulocytes % 0.4 % (0-4); Lymphocytes # 2.7 K/mcL (0.6-4.6); Lymphocytes % 15.3 %; Mean Corpuscular HGB Conc 34.3 g/dL (31.6-35.5); Mean Corpuscular Hemoglobin 28.5 pg (28.0-33.3); Mean Platelet Volume 9.4 fL (9.4-12.4); Monocytes # 1.7 K/mcL (0.0-1.3); Monocytes % 9.5 %; Neutrophils # 13.2 K/mcL (1.6-8.9); Platelet Count 740 K/mcL (140-400); Red Cell Distribution Width 15.9 % (11.5-14.5); Segmented Neutrophils % 74.2 %
[2017-05-21 09:53] LABS: BUN/Creatinine Ratio 10 (6-26); Blood Urea Nitrogen 8 mg/dL (8-26); Calcium 7.8 mg/dL (8.6-10.8); Carbon Dioxide 22 mEq/L (19-29); Chloride 108 mEq/L (98-109); Glucose 104 mg/dL (70-99); Osmolality,Calculated 287 (280-300); Potassium 3.8 mEq/L (3.5-4.5); Sodium 139 mEq/L (136-145); eGFR For African Americans > 60 (> 60); eGFR For Non-African Americans > 60 (> 60)
[2017-05-21] MEDS ORDERED: levoFLOXacin 750 MG TABLET PO SCH (11:00)
[2017-05-21] MEDS: Aspirin Enteric Coated 81 MG Tablet PO SCH (12:50)
[2017-05-21] MEDS: Vancomycin 1,250 MG in D5% in Water 250 ML IVPB SCH (12:56)
[2017-05-21] MEDS: Levofloxacin 750 MG/150 ML 750 MG/150 ML BAG IVPB SCH (14:56)
--- NOTE | 2017-05-21 15:09 | Neurology Progress Note ---
Date of Encounter: 05/21/17 Time of Encounter: 08:10 Assessment and Plan (1) Encephalopathy Current Visit: Yes Status: Resolved (2) Dementia Current Visit: Yes Status: Chronic This patient who apparently has dementia noted to be agitated earlier but now much relaxed and calm he does follow simple commands moving all 4 extremities no evidence of acute motor weakness. So far his workup is been negative including CSF examination. Unable to get an MRI as he is not cooperative CT scan and it shows evidence of occipital infarct but it was noted on the previous scans as well he has been on an aspirin suggested that he should continue. He may continue on Seroquel for his acute agitation. Overall he seems to be stable continue to check for any underlying metabolic or infectious etiology that may be causing and contributing to his symptoms most likely due to his changes in an environment and these multiple hospitalizations in the last few months making his underlying dementia worse Qualifiers: Dementia type: Alzheimer's disease Alzheimer's disease onset: late-onset Dementia behavioral disturbance: with behavioral disturbance Qualified Code(s) : G30.1 - Alzheimer's disease with late onset; F02.81 - Dementia in other diseases classified elsewhere with behavioral disturbance; F02.81 - Dementia in other diseases classified elsewhere with behavioral disturbance; F02.81 - Dementia in other diseases classified elsewhere with behavioral disturbance Subjective Interval history: Patient is sleepy today , quite not as agitated as was yerterday no new symptoms or complains CSF is negative for any acute abnormality CT of the head was also negative except occipital infarct noted on previous scan Objective - Constitutional Vitals: Temp Pulse Resp BP Pulse Ox 98.9 F 92 14 163/86 93 05/21/17 11:31 05/21/17 11:31 05/21/17 11:31 05/21/17 11:31 05/21/17 11:31 - Neurological Exam Sensorimotor examination: Present: intact Motor Examination: Present: grossly full strength in all extremities Sensation intact: Present: intact Reflexes: Biceps: 1+, Triceps: 1+, Brachioradialis: 1+, Patella: 1+, Achilles: 1 + Mental Status Examination: Present: awake, alert, oriented to person, opens eyes to voice, opens eyes to noxious stimulation, makes eye contact, follows simple commands, localizes noxious stimulation Cranial nerve examination: Present: PERRL, EOMI, visual flannery intact, sensory to face intact, no facial asymmetry is present Cerebellar examination: Present: no dysmetria Results - Laboratory Findings CBC and BMP: 05/21/17 09:17 05/21/17 09:17 Abnormal lab findings: Abnormal lab results WBC 17.8 K/mcL (4.3-11.1) H D 05/21/17 09:17 RDW 15.9 % (11.5-14.5) H 05/21/17 09:17 Plt Count 740 K/mcL (140-400) H 05/21/17 09:17 Neutrophils # 13.2 K/mcL (1.6-8.9) H 05/21/17 09:17 Monocytes # 1.7 K/mcL (0.0-1.3) H 05/21/17 09:17 Platelet Estimate Increased (Normal) H 05/18/17 06:00 Large Platelets Present (Not Present) A 05/18/17 06:00 Glucose 104 mg/dL (70-99) H 05/21/17 09:17 Calcium 7.8 mg/dL (8.6-10.8) L 05/21/17 09:17 Albumin 2.7 g/dL (3.5-5.0) L 05/17/17 23:49 Globulin 4.3 g/dL (2.4-3.5) H 05/17/17 23:49 Albumin/Globulin Ratio 0.6 (1.1-2.2) L 05/17/17 23:49 Urine Bilirubin Small (Negative) H 05/17/17 23:15 Ur Leukocyte Esterase Small (Negative) H 05/17/17 23:15 Urine Microscopic RBC 3-5 per hpf (0-3) H 05/17/17 23:15 Urine Microscopic WBC 5-15 per hpf (0-3) H 05/17/17 23:15 Ur Culture Indicated? YES (NO) A 05/17/17 23:15 CSF Glucose 74 mg/dL (40-70) H 05/18/17 01:50 Vancomycin Trough 6.8 mcg/mL (10-20) L 05/20/17 05:41 Consult Discharge Plan - Plan Referrals: Isa Hernandez DO [Primary Care Provider] -
--- NOTE | 2017-05-21 18:50 | Internal Med Progress Note ---
Date of Encounter: 05/21/17 Time of Encounter: 11:00 - Assessment and plan (1) Pneumonia Current Visit: Yes Status: Acute Assessment and plan: -Cullen with MAXIMUM TEMPERATURE of 100.2 and now worsening leukocytosis. -We will cover patient for hospital-acquired pneumonia with vancomycin/Zosyn/ Levaquin. Qualifiers: Pneumonia type: due to unspecified organism Laterality: bilateral Lung location: lower lobe of lung Qualified Code(s): J18.9 - Pneumonia, unspecified organism (2) Stroke Current Visit: Yes Status: Acute Assessment and plan: -CT head showed subacute left occipital infarct vs extension of white matter ischemic disease. -Patient not cooperative for MRI brain. Carotid Doppler shows B/L nonstenotic plaque. Echocardiogram shows 555 EF, no valvular abnormality. -Continue ASA and statin. -Neurology following and appreciate recommendations. Qualifiers: CVA mechanism: unspecified Qualified Code(s): I63.9 - Cerebral infarction, unspecified (3) Encephalopathy Current Visit: Yes Status: Resolved Assessment and plan: -Acute encephalopathy, likely metabolic/septic due to PNA, benzodiazepines/ sedatives. -CSF analysis not c/w bacterial meningitis -Currently back to baseline mental status, confused and disoriented, occasionally combative; continue 1:1 watch for safety. (4) Dementia Current Visit: Yes Status: Chronic Assessment and plan: -Suspect patient with underlying dementia. Qualifiers: Dementia type: Alzheimer's disease Alzheimer's disease onset: late-onset Dementia behavioral disturbance: with behavioral disturbance Qualified Code(s) : G30.1 - Alzheimer's disease with late onset; F02.81 - Dementia in other diseases classified elsewhere with behavioral disturbance; F02.81 - Dementia in other diseases classified elsewhere with behavioral disturbance; F02.81 - Dementia in other diseases classified elsewhere with behavioral disturbance (5) Thrombocytosis Current Visit: Yes Status: Acute Assessment and plan: -Likely reactive; continue to monitor; (6) Essential hypertension Current Visit: Yes Status: Chronic Assessment and plan: -Patient refusing oral meds; will use PRN IV Hydralazine; (7) DVT prophylaxis Current Visit: Yes Status: Acute Assessment and plan: -Subcutaneous heparin. - Subjective Interval history: Patient with MAXIMUM TEMPERATURE of 100.2 overnight and now with worsening leukocytosis. - Constitutional Vitals: Temp Pulse Resp BP Pulse Ox 98.2 F 66 12 162/69 92 05/21/17 15:53 05/21/17 15:53 05/21/17 15:53 05/21/17 15:53 05/21/17 15:53 General appearance: Present: A&O X 0. Absent: answers questions appropriately - Cardiovascular Cardiovascular exam: Present: RRR, +S1, +S2. Absent: diastolic murmur, gallop, rubs, systolic murmur Internal Medicine: Result - Labs CBC & Chem 7: 05/21/17 09:17 05/21/17 09:17 Labs: Short CBC 05/21/17 Range/Units 09:17 WBC 17.8 H D (4.3-11.1) K/mcL Hgb 15.1 (12.9-16.9) g/dL Hct 44.0 (37.5-50.1) % Plt Count 740 H (140-400) K/mcL Neutrophils # 13.2 H (1.6-8.9) K/mcL BMP 05/21/17 09:17 Sodium 139 Potassium 3.8 Chloride 108 Carbon Dioxide 22 BUN 8 Creatinine 0.78 Glucose 104 H Calcium 7.8 L Consult Discharge Plan - Plan Referrals: Isa Hernandez DO [Primary Care Provider] -
[2017-05-21] MEDS: Mirtazapine 15 MG TABLET PO SCH (23:12)
[2017-05-21] MEDS: Melatonin 3 MG TABLET PO SCH (23:12)
[2017-05-22] MEDS: Piperacillin/Tazobactam 3.375 GM in D5% in Water 50 ML IVPB SCH ×3 (00:22→15:06)
[2017-05-22] MEDS: D5% in 0.9% NACL 1,000 ML IVC SCH (05:57)
[2017-05-22] MEDS: *HR* Heparin 5,000 UNIT/ML VIAL SQ SCH ×2 (05:57→19:59)
[2017-05-22] MEDS: Valproic Acid INJ 250 MG in 0.9 % Sodium Chloride 100 ML IVPB SCH ×3 (06:08→22:53)
[2017-05-22 10:17] LABS: Basophils # 0.1 K/mcL (0.0-0.2); Basophils % 0.8 %; Eosinophils # 0.1 K/mcL (0.0-0.6); Eosinophils % 1.3 %; Hematocrit 41.8 % (37.5-50.1); Hemoglobin 14.3 g/dL (12.9-16.9); Immature Granulocytes % 0.3 % (0-4); Lymphocytes # 2.6 K/mcL (0.6-4.6); Lymphocytes % 26.1 %; Mean Corpuscular HGB Conc 34.2 g/dL (31.6-35.5); Mean Corpuscular Hemoglobin 28.5 pg (28.0-33.3); Mean Corpuscular Volume 83.3 fL (83.0-100.0); Mean Platelet Volume 9.2 fL (9.4-12.4); Monocytes # 1.2 K/mcL (0.0-1.3); Monocytes % 12.5 %; Neutrophils # 5.8 K/mcL (1.6-8.9); Platelet Count 790 K/mcL (140-400); Red Blood Count 5.02 M/mcL (4.19-5.50); Red Cell Distribution Width 15.7 % (11.5-14.5)
[2017-05-22 10:29] LABS: BUN/Creatinine Ratio 9 (6-26); Blood Urea Nitrogen 7 mg/dL (8-26); Calcium 7.8 mg/dL (8.6-10.8); Carbon Dioxide 22 mEq/L (19-29); Chloride 109 mEq/L (98-109); Glucose 101 mg/dL (70-99); Osmolality,Calculated 284 (280-300); Potassium 3.6 mEq/L (3.5-4.5); Sodium 138 mEq/L (136-145); eGFR For African Americans > 60 (> 60); eGFR For Non-African Americans > 60 (> 60)
[2017-05-22] MEDS: Levofloxacin 750 MG/150 ML 750 MG/150 ML BAG IVPB SCH (12:58)
[2017-05-22] MEDS: Vancomycin 1,250 MG in D5% in Water 250 ML IVPB SCH (12:59)
[2017-05-22] MEDS: Aspirin Enteric Coated 81 MG Tablet PO SCH ×2 (13:02→13:23)
--- NOTE | 2017-05-22 13:42 | Neurology Progress Note ---
Date of Encounter: 05/22/17 Time of Encounter: 13:40 Assessment and Plan (1) Altered mental status Current Visit: Yes Status: Acute This patient has an underlying history of dementia, and I agree with Dr. Butsamante. It seems that his acute mental status changes are likely due to an underlying metabolic disturbance likely acute infection. His level of consciousness is not suppressed now, he does make eye contact. He does not follow commands however he yells out and responds briskly to noxious stim. I would agree with measures to help minimize his agitation. Perhaps titrating the Seroquel would be helpful. I find no evidence to support cerebral infarct. Although his blood pressure is markedly elevated which certainly places him at risk for such. Perhaps considering a feeding tube might be beneficial in assuring that he takes his medications appropriately as well as maintaining proper nutrition. No further neurologic follow at this time. I will reevaluate him at your request. Qualifiers: Altered mental status type: delirium Qualified Code(s): R41.0 - Disorientation, unspecified Subjective Interval history: The chart was reviewed, the patient was seen and examined independently. Case was discussed with Dr. Bustamante during signout. I agree with Dr. Bustamante's assessment. I believe that the acute mental status changes and worsening agitation likely due to underlying medical issues. Currently he is awake and alert. He has paucity of speech but he speaks very loudly and yells out whenever noxious stim is applied. The lumbar puncture results were negative for any infectious or inflammatory condition. I find no focal or lateralized findings on his examination. His mental status seems to have improved with the resolution of his white blood cell counts. Objective - Constitutional Vitals: Temp Pulse Resp BP Pulse Ox 99.4 F 67 18 198/83 97 05/22/17 12:00 05/22/17 13:30 05/22/17 13:30 05/22/17 13:30 05/22/17 13:30 - Neurological Exam Motor Examination: Present: grossly full strength in all extremities Sensation intact: Present: intact (He does withdraw all 4 extremities to noxious stim.) Mental Status Examination: Present: awake, alert (He makes eye contact, there is no evidence of encephalopathy here.), oriented to person, does not follow commands (Easily agitated.), opens eyes to voice, opens eyes to noxious stimulation, makes eye contact, follows simple commands, localizes noxious stimulation, not reliable historian (Again his verbal responses are very limited and he does not speak in complete sentences. He does make eye contact however) Cranial nerve examination: Present: PERRL, EOMI, visual flannery intact, sensory to face intact, no facial asymmetry is present Cerebellar examination: Present: no dysmetria Results - Laboratory Findings CBC and BMP: 05/22/17 10:11 05/22/17 10:11 Abnormal lab findings: Abnormal lab results RDW 15.7 % (11.5-14.5) H 05/22/17 10:11 Plt Count 790 K/mcL (140-400) H 05/22/17 10:11 MPV 9.2 fL (9.4-12.4) L 05/22/17 10:11 Platelet Estimate Increased (Normal) H 05/18/17 06:00 Large Platelets Present (Not Present) A 05/18/17 06:00 BUN 7 mg/dL (8-26) L 05/22/17 10:11 Glucose 101 mg/dL (70-99) H 05/22/17 10:11 POC Glucose 99 (58-89) H 05/21/17 19:53 Calcium 7.8 mg/dL (8.6-10.8) L 05/22/17 10:11 Albumin 2.7 g/dL (3.5-5.0) L 05/17/17 23:49 Globulin 4.3 g/dL (2.4-3.5) H 05/17/17 23:49 Albumin/Globulin Ratio 0.6 (1.1-2.2) L 05/17/17 23:49 Urine Bilirubin Small (Negative) H 05/17/17 23:15 Ur Leukocyte Esterase Small (Negative) H 05/17/17 23:15 Urine Microscopic RBC 3-5 per hpf (0-3) H 05/17/17 23:15 Urine Microscopic WBC 5-15 per hpf (0-3) H 05/17/17 23:15 Ur Culture Indicated? YES (NO) A 05/17/17 23:15 CSF Glucose 74 mg/dL (40-70) H 05/18/17 01:50 Vancomycin Trough 6.8 mcg/mL (10-20) L 05/20/17 05:41 Consult Discharge Plan - Plan Referrals: Ias Hernandez DO [Primary Care Provider] -
--- NOTE | 2017-05-22 20:07 | Internal Med Progress Note ---
Date of Encounter: 05/22/17 Time of Encounter: 11:00 - Assessment and plan (1) Pneumonia Current Visit: Yes Status: Acute Assessment and plan: -Patient is now afebrile and leukocytosis has resolved after restarting coverage for hospital-acquired pneumonia with vancomycin/Zosyn/Levaquin. Qualifiers: Pneumonia type: due to unspecified organism Laterality: bilateral Lung location: lower lobe of lung Qualified Code(s): J18.9 - Pneumonia, unspecified organism (2) Stroke Current Visit: Yes Status: Acute Assessment and plan: -CT head showed subacute left occipital infarct vs extension of white matter ischemic disease. -Patient not cooperative for MRI brain. Carotid Doppler shows B/L nonstenotic plaque. Echocardiogram shows 555 EF, no valvular abnormality. -Continue ASA and statin. -Neurology following and appreciate recommendations. Qualifiers: CVA mechanism: unspecified Qualified Code(s): I63.9 - Cerebral infarction, unspecified (3) Encephalopathy Current Visit: Yes Status: Resolved Assessment and plan: -Acute encephalopathy, likely metabolic/septic due to PNA, benzodiazepines/ sedatives. -CSF analysis not c/w bacterial meningitis -Currently back to baseline mental status, confused and disoriented, occasionally combative; continue 1:1 watch for safety. (4) Dementia Current Visit: Yes Status: Chronic Assessment and plan: -Suspect patient with underlying dementia. Qualifiers: Dementia type: Alzheimer's disease Alzheimer's disease onset: late-onset Dementia behavioral disturbance: with behavioral disturbance Qualified Code(s) : G30.1 - Alzheimer's disease with late onset; F02.81 - Dementia in other diseases classified elsewhere with behavioral disturbance; F02.81 - Dementia in other diseases classified elsewhere with behavioral disturbance; F02.81 - Dementia in other diseases classified elsewhere with behavioral disturbance (5) Thrombocytosis Current Visit: Yes Status: Acute Assessment and plan: -Likely reactive; continue to monitor; (6) Essential hypertension Current Visit: Yes Status: Chronic Assessment and plan: -Patient refusing oral meds; will use PRN IV Hydralazine; (7) DVT prophylaxis Current Visit: Yes Status: Acute Assessment and plan: -Subcutaneous heparin. - Subjective Interval history: Patient with MAXIMUM TEMPERATURE of 100.2 overnight and now with worsening leukocytosis. - Constitutional Vitals: Temp Pulse Resp BP Pulse Ox 98.3 F 77 16 176/79 96 05/22/17 19:38 05/22/17 19:38 05/22/17 19:38 05/22/17 19:38 05/22/17 19:38 General appearance: Present: A&O X 0. Absent: answers questions appropriately Internal Medicine: Result - Labs CBC & Chem 7: 05/22/17 10:11 05/22/17 10:11 Labs: Short CBC 05/22/17 Range/Units 10:11 WBC 9.9 (4.3-11.1) K/mcL Hgb 14.3 (12.9-16.9) g/dL Hct 41.8 (37.5-50.1) % Plt Count 790 H (140-400) K/mcL Neutrophils # 5.8 (1.6-8.9) K/mcL BMP 05/22/17 10:11 Sodium 138 Potassium 3.6 Chloride 109 Carbon Dioxide 22 BUN 7 L Creatinine 0.76 Glucose 101 H Calcium 7.8 L Consult Discharge Plan - Plan Referrals: Isa Hernandez DO [Primary Care Provider] -
[2017-05-22] MEDS: Melatonin 3 MG TABLET PO SCH (21:22)
[2017-05-22] MEDS: Mirtazapine 15 MG TABLET PO SCH (21:22)
[2017-05-22] MEDS: Piperacillin/Tazobactam 3.375 GM in 0.9 % Sodium Chloride Mini Bag 100 ML IVPB SCH (22:54)
[2017-05-23] MEDS: *HR* Heparin 5,000 UNIT/ML VIAL SQ SCH ×2 (06:04→16:54)
[2017-05-23] MEDS: Valproic Acid INJ 250 MG in 0.9 % Sodium Chloride 100 ML IVPB SCH ×3 (06:04→22:40)
[2017-05-23] MEDS: Piperacillin/Tazobactam 3.375 GM in 0.9 % Sodium Chloride Mini Bag 100 ML IVPB SCH ×2 (10:00→16:56)
[2017-05-23 10:13] LABS: Basophils # 0.1 K/mcL (0.0-0.2); Eosinophils # 0.1 K/mcL (0.0-0.6); Eosinophils % 1.3 %; Hemoglobin 15.4 g/dL (12.9-16.9); Immature Granulocytes % 1.2 % (0-4); Lymphocytes # 2.5 K/mcL (0.6-4.6); Lymphocytes % 23.9 %; Mean Corpuscular HGB Conc 33.5 g/dL (31.6-35.5); Mean Corpuscular Hemoglobin 27.9 pg (28.0-33.3); Mean Corpuscular Volume 83.3 fL (83.0-100.0); Mean Platelet Volume 9.2 fL (9.4-12.4); Monocytes # 1.5 K/mcL (0.0-1.3); Monocytes % 14.1 %; Platelet Count 710 K/mcL (140-400); Red Blood Count 5.52 M/mcL (4.19-5.50); Red Cell Distribution Width 16.2 % (11.5-14.5); Segmented Neutrophils % 58.5 %
[2017-05-23 10:25] LABS: BUN/Creatinine Ratio 8 (6-26); Blood Urea Nitrogen 6 mg/dL (8-26); Calcium 8.4 mg/dL (8.6-10.8); Carbon Dioxide 26 mEq/L (19-29); Chloride 109 mEq/L (98-109); Glucose 107 mg/dL (70-99); Osmolality,Calculated 286 (280-300); Potassium 3.8 mEq/L (3.5-4.5); Sodium 139 mEq/L (136-145); eGFR For African Americans > 60 (> 60); eGFR For Non-African Americans > 60 (> 60)
[2017-05-23] MEDS: Levofloxacin 750 MG/150 ML 750 MG/150 ML BAG IVPB SCH (10:26)
[2017-05-23] MEDS: Aspirin Enteric Coated 81 MG Tablet PO SCH (10:30)
[2017-05-23 11:15] LABS: Vancomycin,Trough 6.4 mcg/mL (10-20)
[2017-05-23] MEDS: D5% in 0.9% NACL 1,000 ML IVC SCH ×2 (12:19)
[2017-05-23] MEDS: Vancomycin 1,250 MG in D5% in Water 250 ML IVPB SCH (13:31)
[2017-05-23] MEDS ORDERED: Vancomycin 500 MG in D5% in Water 100 ML IVPB ONE ×2 (15:00→18:00)
[2017-05-23] MEDS ORDERED: Vancomycin 500 MG in D5% in Water (Mini-Bag+) 100 ML IVPB ONE (18:15)
--- NOTE | 2017-05-23 18:43 | Internal Med Progress Note ---
Date of Encounter: 05/23/17 Time of Encounter: 11:00 - Assessment and plan (1) Pneumonia Current Visit: Yes Status: Acute Assessment and plan: -Patient is now afebrile and leukocytosis has resolved after restarting coverage for hospital-acquired pneumonia with vancomycin/Zosyn/Levaquin. Qualifiers: Pneumonia type: due to unspecified organism Laterality: bilateral Lung location: lower lobe of lung Qualified Code(s): J18.9 - Pneumonia, unspecified organism (2) Stroke Current Visit: Yes Status: Acute Assessment and plan: -CT head showed subacute left occipital infarct vs extension of white matter ischemic disease. -Patient not cooperative for MRI brain. Carotid Doppler shows B/L nonstenotic plaque. Echocardiogram shows 555 EF, no valvular abnormality. -Continue ASA and statin. -Neurology following and appreciate recommendations. Qualifiers: CVA mechanism: unspecified Qualified Code(s): I63.9 - Cerebral infarction, unspecified (3) Encephalopathy Current Visit: Yes Status: Resolved Assessment and plan: -Acute encephalopathy, likely metabolic/septic due to PNA, benzodiazepines/ sedatives. -CSF analysis not c/w bacterial meningitis -Currently back to baseline mental status, confused and disoriented, occasionally combative; continue 1:1 watch for safety. (4) Dementia Current Visit: Yes Status: Chronic Assessment and plan: -Suspect patient with underlying dementia. Qualifiers: Dementia type: Alzheimer's disease Alzheimer's disease onset: late-onset Dementia behavioral disturbance: with behavioral disturbance Qualified Code(s) : G30.1 - Alzheimer's disease with late onset; F02.81 - Dementia in other diseases classified elsewhere with behavioral disturbance; F02.81 - Dementia in other diseases classified elsewhere with behavioral disturbance; F02.81 - Dementia in other diseases classified elsewhere with behavioral disturbance (5) Thrombocytosis Current Visit: Yes Status: Acute Assessment and plan: -Likely reactive; continue to monitor; (6) Essential hypertension Current Visit: Yes Status: Chronic Assessment and plan: -Patient refusing oral meds; will use PRN IV Hydralazine; (7) DVT prophylaxis Current Visit: Yes Status: Acute Assessment and plan: -Subcutaneous heparin. - Subjective Interval history: Patient is alert but not oriented to place or time - Constitutional Vitals: Temp Pulse Resp BP Pulse Ox 97.5 F L 65 15 183/82 95 05/23/17 03:17 05/23/17 16:00 05/23/17 16:00 05/23/17 16:00 05/23/17 16:00 General appearance: Present: A&O X 0. Absent: answers questions appropriately - Respiratory Respiratory exam: Present: accessory muscle use, rales, wheezes - Cardiovascular Cardiovascular exam: Present: RRR, +S1, +S2. Absent: diastolic murmur, gallop, rubs, systolic murmur Internal Medicine: Result - Labs CBC & Chem 7: 05/23/17 10:02 05/23/17 10:02 Labs: Short CBC 05/23/17 Range/Units 10:02 WBC 10.3 (4.3-11.1) K/mcL Hgb 15.4 (12.9-16.9) g/dL Hct 46.0 (37.5-50.1) % Plt Count 710 H (140-400) K/mcL Neutrophils # 6.0 (1.6-8.9) K/mcL BMP 05/23/17 10:02 Sodium 139 Potassium 3.8 Chloride 109 Carbon Dioxide 26 BUN 6 L Creatinine 0.79 Glucose 107 H Calcium 8.4 L Consult Discharge Plan - Plan Referrals: Isa Hernandez DO [Primary Care Provider] -
[2017-05-23] MEDS: Melatonin 3 MG TABLET PO SCH (22:38)
[2017-05-23] MEDS: Mirtazapine 15 MG TABLET PO SCH (22:38)
[2017-05-24] MEDS: Piperacillin/Tazobactam 3.375 GM in 0.9 % Sodium Chloride Mini Bag 100 ML IVPB SCH ×3 (00:40→22:37)
[2017-05-24] MEDS: Haloperidol Lactate 5 MG/ML VIAL IVP PRN (04:54)
[2017-05-24] MEDS: *HR* Heparin 5,000 UNIT/ML VIAL SQ SCH ×2 (05:43→22:38)
[2017-05-24] MEDS: Valproic Acid INJ 250 MG in 0.9 % Sodium Chloride 100 ML IVPB SCH ×2 (06:28→18:25)
[2017-05-24] MEDS: D5% in 0.9% NACL 1,000 ML IVC SCH (06:29)
[2017-05-24] MEDS: Levofloxacin 750 MG/150 ML 750 MG/150 ML BAG IVPB SCH (08:29)
[2017-05-24] MEDS: Aspirin Enteric Coated 81 MG Tablet PO SCH (08:31)
[2017-05-24 09:26] LABS: Basophils # 0.1 K/mcL (0.0-0.2); Basophils % 0.8 %; Eosinophils # 0.2 K/mcL (0.0-0.6); Hematocrit 48.5 % (37.5-50.1); Hemoglobin 16.5 g/dL (12.9-16.9); Immature Granulocytes % 1.3 % (0-4); Lymphocytes # 2.4 K/mcL (0.6-4.6); Lymphocytes % 21.1 %; Mean Corpuscular Hemoglobin 28.5 pg (28.0-33.3); Mean Corpuscular Volume 83.8 fL (83.0-100.0); Mean Platelet Volume 9.4 fL (9.4-12.4); Monocytes # 1.4 K/mcL (0.0-1.3); Monocytes % 12.3 %; Platelet Count 710 K/mcL (140-400); Red Blood Count 5.79 M/mcL (4.19-5.50); Red Cell Distribution Width 17.5 % (11.5-14.5); Segmented Neutrophils % 62.5 %
[2017-05-24 09:41] LABS: BUN/Creatinine Ratio 7 (6-26); Calcium 8.3 mg/dL (8.6-10.8); Carbon Dioxide 23 mEq/L (19-29); Chloride 110 mEq/L (98-109); Glucose 101 mg/dL (70-99); Osmolality,Calculated 289 (280-300); Potassium 3.5 mEq/L (3.5-4.5); Sodium 141 mEq/L (136-145); eGFR For African Americans > 60 (> 60); eGFR For Non-African Americans > 60 (> 60)
[2017-05-24 09:42] LABS: Blood Urea Nitrogen 5 mg/dL (8-26)
[2017-05-24] MEDS: Vancomycin 1,500 MG in D5% in Water 250 ML IVPB SCH (16:19)
--- NOTE | 2017-05-24 18:43 | Internal Med Progress Note ---
Date of Encounter: 05/24/17 Time of Encounter: 11:00 - Assessment and plan (1) Pneumonia Current Visit: Yes Status: Acute Assessment and plan: -Patient is now afebrile and leukocytosis has improved after restarting coverage for hospital-acquired pneumonia. -Continue current medical management Qualifiers: Pneumonia type: due to unspecified organism Laterality: bilateral Lung location: lower lobe of lung Qualified Code(s): J18.9 - Pneumonia, unspecified organism (2) Stroke Current Visit: Yes Status: Acute Assessment and plan: -CT head showed subacute left occipital infarct vs extension of white matter ischemic disease. -Patient not cooperative for MRI brain. Carotid Doppler shows B/L nonstenotic plaque. Echocardiogram shows 555 EF, no valvular abnormality. -Continue ASA and statin. -Neurology following and appreciate recommendations. Qualifiers: CVA mechanism: unspecified Qualified Code(s): I63.9 - Cerebral infarction, unspecified (3) Encephalopathy Current Visit: Yes Status: Resolved Assessment and plan: -Acute encephalopathy, likely metabolic/septic due to PNA, benzodiazepines/ sedatives. -CSF analysis not c/w bacterial meningitis -Currently back to baseline mental status, confused and disoriented, occasionally combative; continue 1:1 watch for safety. (4) Dementia Current Visit: Yes Status: Chronic Assessment and plan: -Suspect patient with underlying dementia. Qualifiers: Dementia type: Alzheimer's disease Alzheimer's disease onset: late-onset Dementia behavioral disturbance: with behavioral disturbance Qualified Code(s) : G30.1 - Alzheimer's disease with late onset; F02.81 - Dementia in other diseases classified elsewhere with behavioral disturbance; F02.81 - Dementia in other diseases classified elsewhere with behavioral disturbance; F02.81 - Dementia in other diseases classified elsewhere with behavioral disturbance (5) Thrombocytosis Current Visit: Yes Status: Acute Assessment and plan: -Likely reactive; continue to monitor; (6) Essential hypertension Current Visit: Yes Status: Chronic Assessment and plan: -Patient refusing oral meds; will use PRN IV Hydralazine; (7) DVT prophylaxis Current Visit: Yes Status: Acute Assessment and plan: -Subcutaneous heparin. - Subjective Interval history: Patient is alert and up on the side of the bed with assistance today; appears to be close to baseline per staff at prior facility - Constitutional Vitals: Temp Pulse Resp BP Pulse Ox 97.9 F 85 18 158/76 95 11/25/17 16:00 05/24/17 16:00 05/24/17 16:00 05/24/17 16:00 05/24/17 16:00 General appearance: Present: A&O X 0. Absent: answers questions appropriately - Respiratory Respiratory exam: Present: CTAB. Absent: accessory muscle use, rales, rhonchi, wheezes - Cardiovascular Cardiovascular exam: Present: RRR, +S1, +S2. Absent: diastolic murmur, gallop, rubs, systolic murmur Internal Medicine: Result - Labs CBC & Chem 7: 05/24/17 08:52 05/24/17 08:52 Labs: Short CBC 05/24/17 Range/Units 08:52 WBC 11.2 H (4.3-11.1) K/mcL Hgb 16.5 (12.9-16.9) g/dL Hct 48.5 (37.5-50.1) % Plt Count 710 H (140-400) K/mcL Neutrophils # 7.0 (1.6-8.9) K/mcL BMP 05/24/17 08:52 Sodium 141 Potassium 3.5 Chloride 110 H Carbon Dioxide 23 BUN 5 L Creatinine 0.71 L Glucose 101 H Calcium 8.3 L Consult Discharge Plan - Plan Referrals: Isa Hernandez DO [Primary Care Provider] -
[2017-05-24] MEDS: Melatonin 3 MG TABLET PO SCH (22:53)
[2017-05-24] MEDS: Mirtazapine 15 MG TABLET PO SCH (22:53)
[2017-05-25] MEDS: Piperacillin/Tazobactam 3.375 GM in 0.9 % Sodium Chloride Mini Bag 100 ML IVPB SCH ×3 (01:00→18:22)
[2017-05-25] MEDS: Valproic Acid INJ 250 MG in 0.9 % Sodium Chloride 100 ML IVPB SCH ×3 (01:06→18:21)
[2017-05-25] MEDS: *HR* Heparin 5,000 UNIT/ML VIAL SQ SCH ×2 (06:21→18:22)
[2017-05-25] MEDS ORDERED: Aminoglycoside Consult 1 EACH MC ONE (09:07)
[2017-05-25] MEDS: Levofloxacin 750 MG/150 ML 750 MG/150 ML BAG IVPB SCH (09:19)
[2017-05-25] MEDS: Aspirin Enteric Coated 81 MG Tablet PO SCH (09:22)
[2017-05-25 14:24] LABS: Basophils # 0.1 K/mcL (0.0-0.2); Basophils % 0.8 %; Eosinophils # 0.2 K/mcL (0.0-0.6); Eosinophils % 1.5 %; Hematocrit 48.5 % (37.5-50.1); Hemoglobin 16.3 g/dL (12.9-16.9); Immature Granulocytes % 0.9 % (0-4); Lymphocytes # 2.1 K/mcL (0.6-4.6); Lymphocytes % 16.5 %; Mean Corpuscular HGB Conc 33.6 g/dL (31.6-35.5); Mean Corpuscular Hemoglobin 28.3 pg (28.0-33.3); Mean Corpuscular Volume 84.2 fL (83.0-100.0); Mean Platelet Volume 9.1 fL (9.4-12.4); Monocytes # 1.6 K/mcL (0.0-1.3); Monocytes % 12.3 %; Neutrophils # 8.6 K/mcL (1.6-8.9); Platelet Count 752 K/mcL (140-400); Red Blood Count 5.76 M/mcL (4.19-5.50); Red Cell Distribution Width 17.3 % (11.5-14.5)
[2017-05-25 14:36] LABS: BUN/Creatinine Ratio 8 (6-26); Blood Urea Nitrogen 6 mg/dL (8-26); Calcium 8.3 mg/dL (8.6-10.8); Carbon Dioxide 25 mEq/L (19-29); Chloride 107 mEq/L (98-109); Glucose 91 mg/dL (70-99); Osmolality,Calculated 287 (280-300); Potassium 3.2 mEq/L (3.5-4.5); Sodium 140 mEq/L (136-145); eGFR For African Americans > 60 (> 60); eGFR For Non-African Americans > 60 (> 60)
--- NOTE | 2017-05-25 17:17 | Internal Med Progress Note ---
Date of Encounter: 05/25/17 Time of Encounter: 11:00 - Assessment and plan (1) Pneumonia Current Visit: Yes Status: Resolved Assessment and plan: -Patient is now afebrile and leukocytosis has improved. -Will discontinue IV antibiotics as patient has completed his course and is back to baseline. -Patient is now medically stable to be discharged back to [facility] Qualifiers: Pneumonia type: due to unspecified organism Laterality: bilateral Lung location: lower lobe of lung Qualified Code(s): J18.9 - Pneumonia, unspecified organism (2) Stroke Current Visit: Yes Status: Acute Assessment and plan: -CT head showed subacute left occipital infarct vs extension of white matter ischemic disease. -Patient not cooperative for MRI brain. Carotid Doppler shows B/L nonstenotic plaque. Echocardiogram shows 555 EF, no valvular abnormality. -Neurology following with recommendations for medical management with continued ASA and statin. Qualifiers: CVA mechanism: unspecified Qualified Code(s): I63.9 - Cerebral infarction, unspecified (3) Encephalopathy Current Visit: Yes Status: Resolved Assessment and plan: -Acute encephalopathy, likely metabolic/septic due to PNA, benzodiazepines/ sedatives. -CSF analysis not c/w bacterial meningitis -Currently back to baseline mental status, confused and disoriented, occasionally combative which is secondary to dementia. (4) Dementia Current Visit: Yes Status: Chronic Assessment and plan: -Suspect patient with underlying dementia. Qualifiers: Dementia type: Alzheimer's disease Alzheimer's disease onset: late-onset Dementia behavioral disturbance: with behavioral disturbance Qualified Code(s) : G30.1 - Alzheimer's disease with late onset; F02.81 - Dementia in other diseases classified elsewhere with behavioral disturbance; F02.81 - Dementia in other diseases classified elsewhere with behavioral disturbance; F02.81 - Dementia in other diseases classified elsewhere with behavioral disturbance (5) Thrombocytosis Current Visit: Yes Status: Acute Assessment and plan: -Likely reactive; continue to monitor; (6) Essential hypertension Current Visit: Yes Status: Chronic Assessment and plan: -Patient refusing oral meds; will use PRN IV Hydralazine; (7) DVT prophylaxis Current Visit: Yes Status: Acute Assessment and plan: -Subcutaneous heparin. - Subjective Interval history: Patient continues to be alert and smiling today; appears to be close to baseline per staff at prior facility - Constitutional Vitals: Temp Pulse Resp BP Pulse Ox 97.8 F 80 18 163/74 97 05/25/17 16:10 05/25/17 16:10 05/25/17 16:10 05/25/17 16:10 05/25/17 16:10 General appearance: Present: A&O X 0. Absent: answers questions appropriately - Cardiovascular Cardiovascular exam: Present: RRR, +S1, +S2. Absent: diastolic murmur, gallop, rubs, systolic murmur Internal Medicine: Result - Labs CBC & Chem 7: 05/25/17 14:03 05/25/17 14:03 Labs: Short CBC 05/25/17 Range/Units 14:03 WBC 12.7 H (4.3-11.1) K/mcL Hgb 16.3 (12.9-16.9) g/dL Hct 48.5 (37.5-50.1) % Plt Count 752 H (140-400) K/mcL Neutrophils # 8.6 (1.6-8.9) K/mcL BMP 05/25/17 14:03 Sodium 140 Potassium 3.2 L Chloride 107 Carbon Dioxide 25 BUN 6 L Creatinine 0.78 Glucose 91 Calcium 8.3 L Consult Discharge Plan - Plan Referrals: Isa Hernandez DO [Primary Care Provider] -
[2017-05-25] MEDS: Vancomycin 1,500 MG in D5% in Water 250 ML IVPB SCH (18:21)
[2017-05-26] MEDS: Melatonin 3 MG TABLET PO SCH ×2 (01:17→22:07)
[2017-05-26] MEDS: Mirtazapine 15 MG TABLET PO SCH ×2 (01:18→22:07)
[2017-05-26] MEDS: Valproic Acid INJ 250 MG in 0.9 % Sodium Chloride 100 ML IVPB SCH (01:18)
[2017-05-26] MEDS: Piperacillin/Tazobactam 3.375 GM in 0.9 % Sodium Chloride Mini Bag 100 ML IVPB SCH (01:18)
[2017-05-26] MEDS: D5% in 0.9% NACL 1,000 ML IVC SCH ×5 (10:15→20:00)
[2017-05-26] MEDS: Valproic Acid Oral Soln 250 MG/5 ML UDC GTUBE SCH ×2 (13:28→22:07)
[2017-05-26] MEDS: Aspirin Enteric Coated 81 MG Tablet PO SCH (13:41)
--- NOTE | 2017-05-26 15:56 | Discharge Summary ---
Date of Encounter: 05/26/17 Time of Encounter: 11:00 - Discharge Diagnosis (1) Pneumonia Priority: Primary Status: Resolved Qualifiers: Pneumonia type: due to unspecified organism Laterality: bilateral Lung location: lower lobe of lung Qualified Code(s): J18.9 - Pneumonia, unspecified organism (2) Stroke Priority: Secondary Status: Acute Qualifiers: CVA mechanism: unspecified Qualified Code(s): I63.9 - Cerebral infarction, unspecified (3) Encephalopathy Priority: Primary Status: Resolved (4) Dementia Priority: Secondary Status: Chronic Qualifiers: Dementia type: Alzheimer's disease Alzheimer's disease onset: late-onset Dementia behavioral disturbance: with behavioral disturbance Qualified Code(s) : G30.1 - Alzheimer's disease with late onset; F02.81 - Dementia in other diseases classified elsewhere with behavioral disturbance; F02.81 - Dementia in other diseases classified elsewhere with behavioral disturbance; F02.81 - Dementia in other diseases classified elsewhere with behavioral disturbance (5) Thrombocytosis Priority: Secondary Status: Acute (6) Essential hypertension Priority: Secondary Status: Chronic - Discharge Medications Home Medications: Benztropine Mesylate [Cogentin] 1 mg IM Q8H PRN 05/21/17 [History] Divalproex Sodium [Depakote Sprinkle] 250 mg PO TID 05/21/17 [History] Haloperidol [Haldol] 2.5 mg PO Q12H 05/21/17 [History] LORazepam [Ativan] 0.25 mg PO QAM 05/21/17 [History] LORazepam [Ativan] 1 mg PO HS 05/21/17 [History] Lactose-Reduced Food [Ensure Plus] 1 bottle PO BID 05/21/17 [History] Lisinopril 2.5 mg PO DAILY 05/21/17 [History] Lisinopril [Zestril] 10 mg PO DAILY 05/21/17 [History] Melatonin [Melatin] 6 mg PO DAILY 05/21/17 [History] Mirtazapine [Remeron] 30 mg PO DAILY 05/21/17 [History] Allergies/Adverse Reactions: 3 Allergy/AdvReac Type Severity Reaction Status Date / Time No Known Allergies Allergy Verified 05/18/17 02:42 Date of admission: 05/19/17 12:05 Primary care physician: Isa Hernandez DO Consults: 05/24/17 11:09 Consult to Occupational Therapy [CONS] Routine Comment: Evaluate, develop and implement POC Reason for Consult: Generalized weakness Consult to Physical Therapy [CONS] Routine Comment: Evaluate, develop and implement POC Reason for Consult: generalized weakness - Patient Status Disposition: Transfer SNF Condition: Fair - Discharge Instructions Follow Up With: Isa Hernandez DO [Primary Care Provider] - Hospital course: Patient is a 81-year-old male with past medical history significant for dementia and hypertension with recent institutionalization at [facility] behavioral unit and then transferred to [facility] whom was sent to the ER due to altered mental status. Apparently at [facility], he was found to have altered mental status and difficult to arouse today at presentation. Patient has chronic leukocytosis but reason is undetermined. Patient was admitted to the medical floor for further evaluation and management. During patients hospital stay, his mental status/metabolic encephalopathy resolved after treatment of pneumonia with IV antibiotics. He is currently back at baseline mentation which is being pleasantly confused due to dementia. Patients hospital stay, head CT was also done which showed subacute left occipital infarct vs extension of white matter ischemic disease. Carotid Doppler shows B/L nonstenotic plaque. Echocardiogram showed a LVEF of 55% without any valvular abnormality. Neurology was consulted with recommendations for medical management with continued ASA and statin. Patient is medically stable to be discharged back to [facility]. - Time Spent with Patient Total time spent providing and/or coordinating discharge services: Less than 30 minutes - Constitutional Vitals: Temp Pulse Resp BP Pulse Ox 98.0 F 89 15 125/58 98 05/26/17 07:18 05/26/17 07:18 05/26/17 07:18 05/26/17 07:18 05/26/17 07:18 General appearance: Present: A&O X 0. Absent: answers questions appropriately - Cardiovascular Cardiovascular exam: Present: RRR, +S1, +S2. Absent: diastolic murmur, gallop, rubs, systolic murmur
--- NOTE | 2017-05-26 15:59 | Physician Discharge Referral ---
ExtendedCare Referral Info Institutional Level of Care: Intermediate - Diagnosis (1) Pneumonia Priority: Primary Status: Resolved (2) Stroke Priority: Secondary Status: Acute (3) Encephalopathy Priority: Primary Status: Resolved (4) Dementia Priority: Secondary Status: Chronic (5) Thrombocytosis Priority: Secondary Status: Acute (6) Essential hypertension Priority: Secondary Status: Chronic - Transfer Medications Home Medications: Benztropine Mesylate [Cogentin] 1 mg IM Q8H PRN 05/21/17 [History] Divalproex Sodium [Depakote Sprinkle] 250 mg PO TID 05/21/17 [History] Haloperidol [Haldol] 2.5 mg PO Q12H 05/21/17 [History] LORazepam [Ativan] 0.25 mg PO QAM 05/21/17 [History] LORazepam [Ativan] 1 mg PO HS 05/21/17 [History] Lactose-Reduced Food [Ensure Plus] 1 bottle PO BID 05/21/17 [History] Lisinopril 2.5 mg PO DAILY 05/21/17 [History] Lisinopril [Zestril] 10 mg PO DAILY 05/21/17 [History] Melatonin [Melatin] 6 mg PO DAILY 05/21/17 [History] Mirtazapine [Remeron] 30 mg PO DAILY 05/21/17 [History] Allergies/Adverse Reactions: 3 Allergy/AdvReac Type Severity Reaction Status Date / Time No Known Allergies Allergy Verified 05/18/17 02:42 - Respiratory Orders Smoking Cessation: Smoking cessation has been advised. For more information, call the [place] Tobacco Quit Line at 4-761-JMZD-NOW. CERTIFICATION: I certify that the transfer of the above named patient to an Extended Care Facility is necessary for the continuing treatment of the diagnosis listed. The above information is true and accurate reflection of patient's current condition. Confidential - Redisclosure prohibited without a patient's written consent.
[2017-05-26] MEDS: *HR* Heparin 5,000 UNIT/ML VIAL SQ SCH ×2 (19:18→19:44)
[2017-05-27] MEDS: *HR* Heparin 5,000 UNIT/ML VIAL SQ SCH (05:02)
[2017-05-27 07:59] VITALS: BP 157/74
[2017-05-27] MEDS: Aspirin Enteric Coated 81 MG Tablet PO SCH (09:30)
[2017-05-27] MEDS: Valproic Acid Oral Soln 250 MG/5 ML UDC GTUBE SCH (09:30)
--- NOTE | 2017-05-27 15:20 | Internal Med Progress Note ---
Date of Encounter: 05/27/17 Time of Encounter: 09:55 - Assessment and plan (1) Stroke Current Visit: Yes Status: Acute Assessment and plan: Patient will be transferred to skilled rehabilitation today. Continue aspirin, statin. Qualifiers: CVA mechanism: unspecified Qualified Code(s): I63.9 - Cerebral infarction, unspecified (2) Dementia Current Visit: Yes Status: Chronic Qualifiers: Dementia type: Alzheimer's disease Alzheimer's disease onset: late-onset Dementia behavioral disturbance: with behavioral disturbance Qualified Code(s) : G30.1 - Alzheimer's disease with late onset; F02.81 - Dementia in other diseases classified elsewhere with behavioral disturbance; F02.81 - Dementia in other diseases classified elsewhere with behavioral disturbance; F02.81 - Dementia in other diseases classified elsewhere with behavioral disturbance (3) Encephalopathy Current Visit: Yes Status: Resolved (4) Essential hypertension Current Visit: Yes Status: Chronic Assessment and plan: Well controlled. (5) Pneumonia Current Visit: Yes Status: Resolved Qualifiers: Pneumonia type: due to unspecified organism Laterality: bilateral Lung location: lower lobe of lung Qualified Code(s): J18.9 - Pneumonia, unspecified organism (6) Thrombocytosis Current Visit: Yes Status: Acute - Subjective Interval history: Patient lying in bed. No new complaints at this time. Awaiting transfer to rehabilitation for placement. - Constitutional Vitals: Temp Pulse Resp BP Pulse Ox 98.3 F 62 12 157/74 94 05/27/17 07:58 05/27/17 04:47 05/27/17 04:47 05/27/17 07:58 05/27/17 04:47 General appearance: Present: A&O X 0. Absent: answers questions appropriately - Respiratory Respiratory exam: Present: CTAB. Absent: accessory muscle use, rales, rhonchi, wheezes - Cardiovascular Cardiovascular exam: Present: RRR, +S1, +S2. Absent: diastolic murmur, gallop, rubs, systolic murmur - GI/Abdominal GI/Abdominal exam: Present: normal bowel sounds, soft, no peritoneal signs. Absent: distended, tenderness Internal Medicine: Result - Labs CBC & Chem 7: 05/25/17 14:03 05/25/17 14:03 Consult Discharge Plan - Plan Referrals: sIa Hernandez DO [Primary Care Provider] -
[2017-05-27] MEDS ORDERED: Valproic Acid Oral Soln 250 MG/5 ML UDC PO SCH (21:00)
== END 2017-05-27 18:50 | DRG 64 ==
LOC: EMEROO 22:55 → 2NENU 22:55 → SUATTDRO 05-18 03:29 → 2NENU 05-18 05:41 → SUATTDRO 05-19 12:05 → 2NENU 05-27 21:34
PROVIDERS: ADMIT Internal Medicine; ATTEND Internal Medicine